=== PATIENT | male | born 1945 | race Caucasian/White ===

== ENCOUNTER 2023-08-16 12:16 | Inpatient (IN) ==
--- NOTE | 2023-08-16 12:54 | Emergency Department Note ---
Impression & Plan Cellulitis, Rigors, Thrombocytopenia, Hypotension ED Provider Note NAME: SHAILESH WARD AGE: 77 SEX: M : 1945 ARRIVES VIA: Ambulance INFORMANT: Patient ED PROVIDER(S): Howie Nava DO CHIEF COMPLAINT: shaking HPI: Patient is a 77-year-old male with a past medical history of depression, suicidal ideations, biliary colic and renal failure who presents to the ER for shaking which started yesterday. Patient notes he noticed a rash on his chest 3 days ago. Denies any headache or change in vision. No chest pain or shortness of breath. No nausea, vomiting, or diarrhea. No dysuria, urgency, or frequency. He notes he cannot stop shaking at this time. No other exacerbating or remitting factors. No fevers ADDITIONAL HISTORY OBTAINED: Per HPI Chronic Medical/Social Conditions Affecting Care: Per HPI PAST MEDICAL HISTORY:See Below PAST SURGICAL HISTORY:See Below FAMILY HISTORY:See Below SOCIAL HISTORY:See Below HOME MEDICATIONS:See Below ALLERGIES:See Below VITALS:See Below PHYSICAL EXAMINATION: GENERAL: Sitting up in bed, alert, shaky EYE EXAM: normal conjunctiva. PERRL and EOM's intact. OROPHARYNX: no exudate, no erythema, lips, buccal mucosa, and tongue normal and mucous membranes are moist NECK: supple, no nuchal rigidity, no adenopathy, non-tender LUNGS: Clear to auscultation. Normal chest wall mechanics HEART: no murmurs, S1 normal and S2 normal ABDOMEN: abdomen soft, non-tender, normo-active bowel sounds, no masses, no rebound or guarding. BACK: Back is symmetrical on inspection and there is no deformity, no midline tenderness, no CVA tenderness. SKIN: Erythematous warm blanching rash over the mid chest that is circular fashion UPPER EXTREMITIES: upper extremities are grossly normal. LOWER EXTREMITIES: No pitting edema. NEURO EXAM: Normal sensorium, cranial nerves II-XII grossly intact, normal speech, no gross weakness of arms, no gross weakness of legs. MEDICAL DECISION MAKING: Patient is a 77-year-old male who is brought in for persistent chills and shaking. IV was established blood work was obtained. Proper station is found to be hypotensive. Labs show no significant leukocytosis or anemia. There is thrombocytopenia at 91. BMP with creatinine 1.5. LFTs bilirubin was unremarkable. Troponin negative. Pro-Shan negative. UA was clean. Lyme was negative. Anaplasmosis smear was negative without inclusion bodies. With the rash I did favor Lyme. Patient was covered with Rocephin. With this being negative I also gave doxycycline to cover for anaplasmosis. Patient was febrile here. Updated at bedside. Given IV fluids. Rigors did improve. He was discussed with the hospitalist for further evaluation management treatment. Consults/Care Managements Discussions: Per [facility] Triage Nursing notes reviewed. Limited review of prior medical records performed Vital Signs: reviewed and remarkable for hypotension Differential diagnosis: Differential diagnosis includes etiologies such as sepsis, UTI, pneumonia, metabolic, electrolyte abnormalities, cardiac sources, intracerebral event, toxicologic, neurological, as well as others were entertained. ER treatment provided: See below Diagnostics interpreted by me include EKG and cardiac monitoring as listed below: -Cardiac Monitoring: An order was placed for continuous cardiac monitoring. The monitor shows a rate of 60 with sinus rhythm. -ECG: Sinus rhythm rate 67 Left axis No PVCs QTc 397 T wave inversion in the high lateral leads -Laboratory studies:Interpreted by me as stated above in MDM and shown below. Imaging studies: Xrays: As interpreted by me: Portable AP upright 1 view of the chest shows no focal CTs show: none Procedures:none Critical Care: None Past Med/Surg History Problem List (Updated 08/16/23 @ 16:35 by Howie Nava DO) Hypotension (Acute) Thrombocytopenia (Acute) Rigors (Acute) Cellulitis (Acute) Depression (Chronic) Sensorineural hearing loss (SNHL) of both ears Bilateral tinnitus Dementia (Chronic) Suicidal ideation (Acute) Mood disorder (Acute) Epididymitis (Acute) Testicular pain, right (Acute) Crushing injury of second toe, left (Acute) Suicidal ideation (Acute) ARF (acute renal failure) (Acute) ARF (acute renal failure) (Acute) Abdominal pain (Acute) Biliary colic (Acute 07/13/13) Dehydration (Acute) Medical History Depression Surgical History Surgical history unknown Family History Other Family history unknown Social History Smoking Status: Former smoker Preferred Language: Bulgarian current occupational status: retired Feels Safe at Home: Yes Allergies Allergies Allergy/AdvReac Type Severity Reaction Status Date / Time ziprasidone AdvReac Intermediate RASH Verified 08/20/20 15:02 Home Meds Home Medications Medication Instructions Recorded Confirmed ascorbic acid (vitamin C) 500 mg 1,000 mg PO DAILY 06/27/20 08/16/23 capsule aspirin 81 mg tablet,delayed 81 mg PO DAILY 06/27/20 08/16/23 release ferrous sulfate 325 mg (65 mg 650 mg PO DAILY 06/27/20 08/16/23 iron) tablet multivitamin 1 tab PO DAILY 06/27/20 08/16/23 gabapentin 300 mg capsule 600 mg PO BID 08/20/20 08/16/23 trazodone 50 mg tablet 100 mg PO HS 08/20/20 08/16/23 CoQ-10 1 cap PO UD 08/16/23 08/16/23 Results & Data (ED) Vital Signs Vital Signs - 24 hr 08/16/23 12:34 08/16/23 12:54 08/16/23 12:54 Temperature 37.1 C 38 C H Temperature Source Oral Oral Pulse Rate 80 70 Pulse Rate [Finger] Pulse Rhythm [Finger] Pulse Strength [Finger] Respiratory Rate 16 Respiratory Effort / Characteristics Respiratory Depth Normal Respiratory Pattern Blood Pressure 56/30 L Blood Pressure [Right Arm] Blood Pressure Mean 38 Blood Pressure Mean [Right Arm] Blood Pressure Position [Right Arm] Pulse Oximetry 96 Oxygen Delivery Method Room Air Sepsis Recent Fever Within 48 Hours No Sepsis New/Unexplained Change in Mental Status N/A Sepsis Action Taken by Nursing No Action Required 08/16/23 12:55 08/16/23 14:38 Temperature Temperature Source Pulse Rate Pulse Rate [Finger] 60 Pulse Rhythm [Finger] Regular Pulse Strength [Finger] Normal Respiratory Rate 18 Respiratory Effort / Characteristics Non-Labored Spontaneous Respiratory Depth Normal Respiratory Pattern Regular Blood Pressure Blood Pressure [Right Arm] 128/105 H 133/63 Blood Pressure Mean Blood Pressure Mean [Right Arm] 112 86 Blood Pressure Position [Right Arm] Lying Pulse Oximetry 94 Oxygen Delivery Method Room Air Sepsis Recent Fever Within 48 Hours Sepsis New/Unexplained Change in Mental Status Sepsis Action Taken by Nursing Laboratory Data 08/16/23 12:53 08/16/23 12:53 Lab Results 08/16/23 08/16/23 08/16/23 Range/Units 12:53 12:53 13:45 WBC 5.32 (4.8-10.8) K/ul RBC 4.15 L (4.70-6.10) M/uL Hgb 13.3 L (14.0-18.0) g/dl Hct 39.4 L (42.0-52.0) % MCV 94.9 (80.0-100.0) fL MCH 32.0 (25.0-34.0) pg MCHC 33.8 (32.0-36.0) g/dL RDW Std Deviation 43.4 (36.4-46.3) fL RDW Coeff of [place] 12.4 (11.5-14.5) % Plt Count 91 L (130-400) K/uL MPV 10.5 (9.4-12.4) fL Immature Gran % (Auto) 0.4 % Neut % (Auto) 76.4 % Lymph % (Auto) 10.7 % [place] % (Auto) 11.7 % Eos % (Auto) 0.0 % Baso % (Auto) 0.8 % Neut # (Auto) 4.07 (1.40-6.50) K/uL Lymph # (Auto) 0.57 L (1.20-3.40) K/uL [place] # (Auto) 0.62 H (0.11-0.59) K/uL Eos # (Auto) 0.00 (0.00-0.50) K/uL Baso # (Auto) 0.04 (0.00-0.20) K/uL Immature Gran # (Auto) 0.02 (0.01-0.20) K/uL Platelet Estimate Decreased L (Normal) RBC Morphology Unremarkable Sodium 137 (136-145) mmol/L Potassium 4.2 (3.5-5.1) mmol/L Chloride 101 (98-107) mmol/L Carbon Dioxide 30 (21-32) mmol/L Anion Gap 6 (3-11) BUN 21 (6-23) mg/dl Creatinine 1.57 H (0.6-1.4) mg/dl Est Cr Clr Drug Dosing 41.6 ml/min Est GFR ( Amer) 48.6 ml/min Est GFR (Non-Af Amer) 41.9 ml/min BUN/Creatinine Ratio 13.4 (10-20) Glucose 103 H (70-99(Fasting)) mg/dl Lactate 1.7 (0.4-2.0) mmol/L Calcium 8.9 (8.6-10.3) mg/dl Magnesium 2.1 (1.7-2.4) mg/dl Total Bilirubin 0.8 (0.2-1.0) mg/dl Direct Bilirubin 0.2 (0-0.2) mg/dl AST 20 (13-39) U/L ALT 9 (7-52) U/L Alkaline Phosphatase 89 (34-104) U/L Total Creatine Kinase 93 (30-223) U/L Troponin I High Sens 12.4 (0-20) pg/ml Total Protein 7.3 (6.0-8.3) gm/dl Albumin 4.2 (3.4-5.0) gm/dl Procalcitonin 0.17 (0-0.5) ng/ml Urine Color Yellow Urine Appearance Clear (Clear) Urine pH 7.0 (4.5-7.5) Ur Specific [place] 1.018 (1.000-1.030) Urine Protein Trace H (Negative) Urine Glucose (UA) Negative (Negative) Urine Ketones Trace H (Negative) Urine Blood Negative (Negative) Urine Nitrite Negative (Negative) Urine Bilirubin Negative (Negative) Urine Urobilinogen Negative (Negative) Ur Leukocyte Esterase Negative (Negative) Urine WBC (Auto) 0-5 (0-5) /hpf Urine RBC (Auto) 3-5 H (0-2) /hpf U Hyaline Cast (Auto) 0-2 (0-2) /lpf U Epithel Cells (Auto) 0-2 (0-2) /hpf Urine Bacteria (Auto) None Seen (None Seen) Anaplasma Smear See Comment Babesia Smear See Comment Lyme Disease Screen Negative Cancelled (Negative) Administered Medications Discontinued Medications Acetaminophen (Acetaminophen 325 Mg Tab) 650 mg PO NOW STA Stop: 08/16/23 12:56 Last Admin: 08/16/23 13:04 Dose: 650 mg Documented By: DIANA Ceftriaxone Sodium (Rocephin) 2,000 mg in 50 mls @ 100 mls/hr IV NOW STA Stop: 08/16/23 13:20 Last Infusion: 08/16/23 13:54 Dose: Infused Documented By: Admin: 08/16/23 13:04 Dose: 100 mls/hr Documented By: DIANA Sodium Chloride (Nss) 1,000 mls @ 999 mls/hr IV .Q1H1M SRINATH Stop: 08/16/23 15:00 Last Infusion: 08/16/23 15:58 Dose: Infused Documented By: Admin: 08/16/23 13:57 Dose: 999 mls/hr Documented By: Infusion: 08/16/23 13:57 Dose: Infused Documented By: Admin: 08/16/23 13:04 Dose: 999 mls/hr Documented By: DIANA Doxycycline Hyclate 100 mg/ (Dextrose) 100 mls @ 50 mls/hr IV NOW STA Stop: 08/16/23 15:13 Last Infusion: 08/16/23 15:58 Dose: Infused Documented By: Admin: 08/16/23 13:57 Dose: 50 mls/hr Documented By: NAVJOT Imaging Data Radiologist's Impression: Chest X-Ray 08/16/23 12:43 XR chest 1V portable HISTORY: 77 years-old Male Sepsis acute sepsis COMPARISON: 07/13/2013 TECHNIQUE: AP view of the chest FINDINGS: Cardiomediastinal and hilar silhouettes are within normal limits. No pneumothorax, pleural effusion, airspace consolidation or pulmonary edema. Degenerative changes of the shoulders and spine. IMPRESSION: No acute process. ACT 112: Negative or not required by law. The above report was generated using voice recognition software. It may contain grammatical, syntax or spelling errors. Electronically signed by: Ishaan Kumar M.D. 08/16/2023 1:19 PM Discharge Plan Visit Data Chief Complaint: Illness Stated Complaint: Uncontrollable Shaking ED Provider: Howie Nava Discharge Problem: Cellulitis, Rigors, Thrombocytopenia, Hypotension Forms Stand Alone Forms: My [employer] Prescriptions Prescriptions: No Action ascorbic acid (vitamin C) 500 mg capsule 1,000 mg PO DAILY aspirin 81 mg tablet,delayed release (DR/EC) 81 mg PO DAILY ferrous sulfate 325 mg (65 mg iron) tablet 650 mg PO DAILY multivitamin Tablet 1 tab PO DAILY trazodone 50 mg tablet 100 mg PO HS gabapentin 300 mg capsule 600 mg PO BID Rx Instructions: 2 am and 2 pm CoQ-10 1 cap PO UD Rx Instructions: otc, as directed Referrals Referrals: PCP,NO [Physician] - Discharge Problem: Cellulitis Qualifiers: Site of cellulitis: unspecified site Qualified Code(s): L03.90 - Cellulitis, unspecified Hypotension Qualifiers: Hypotension type: unspecified hypotension type Qualified Code(s): I95.9 - Hypotension, unspecified
[2023-08-16] MEDS: ACETAMINOPHEN 325 MG TAB PO STA (13:04)
[2023-08-16] MEDS: cefTRIAXone SODIUM 2,000 MG/50 ML BAG IV STA (13:04)
[2023-08-16] MEDS: SODIUM CHLORIDE 0.9% 1,000 ML IV SCH (13:04)
--- NOTE | 2023-08-16 13:20 | XRay Report ---
XR chest 1V portable HISTORY: 77 years-old Male Sepsis acute sepsis COMPARISON: 07/13/2013 TECHNIQUE: AP view of the chest FINDINGS: Cardiomediastinal and hilar silhouettes are within normal limits. No pneumothorax, pleural effusion, airspace consolidation or pulmonary edema. Degenerative changes of the shoulders and spine. IMPRESSION: No acute process. ACT 112: Negative or not required by law. The above report was generated using voice recognition software. It may contain grammatical, syntax o r spelling errors. Electronically signed by: Ishaan Kumar M.D. 08/16/2023 1:19 PM
[2023-08-16 13:26] LABS: Albumin Level 4.2 gm/dl (3.4-5.0); BUN Creatinine Ratio 13.4 (10-20); Bilirubin Direct 0.2 mg/dl (0-0.2); Bilirubin,Total 0.8 mg/dl (0.2-1.0); Calcium 8.9 mg/dl (8.6-10.3); Creatinine Clr Calc Pharmacy 41.6 ml/min; Est GFR (African American) 48.6 ml/min; Est GFR (Non-African American) 41.9 ml/min; Magnesium 2.1 mg/dl (1.7-2.4); Potassium 4.2 mmol/L (3.5-5.1); Total Protein 7.3 gm/dl (6.0-8.3)
[2023-08-16 13:32] LABS: Troponin I High Sensitivity 12.4 pg/ml (0-20)
[2023-08-16 13:33] LABS: Procalcitonin 0.17 ng/ml (0-0.5)
[2023-08-16 13:35] LABS: Basophils # (auto) 0.04 K/uL (0.00-0.20); Basophils % (auto) 0.8 %; Hematocrit (blood only) 39.4 % (42.0-52.0); Hemoglobin 13.3 g/dl (14.0-18.0); Immature Granulocytes # (auto) 0.02 K/uL (0.01-0.20); Immature Granulocytes % (auto) 0.4 %; Lymphocytes # (auto) 0.57 K/uL (1.20-3.40); Lymphocytes % (auto) 10.7 %; Mean Corpuscular Hgb Conc 33.8 g/dL (32.0-36.0); Mean Corpuscular Volume 94.9 fL (80.0-100.0); Mean Platelet Volume 10.5 fL (9.4-12.4); Monocytes # (auto) 0.62 K/uL (0.11-0.59); Monocytes % (auto) 11.7 %; Neutrophils # (auto) 4.07 K/uL (1.40-6.50); Neutrophils % (auto) 76.4 %; Platelet Count 91 K/uL (130-400); Platelet Estimate Decreased (Normal); RBC Morphology Unremarkable; RDW Coefficient of Variation 12.4 % (11.5-14.5); RDW Standard Deviation 43.4 fL (36.4-46.3); Red Blood Count 4.15 M/uL (4.70-6.10); White Blood Count 5.32 K/ul (4.8-10.8)
[2023-08-16] MEDS: DOXYCYCLINE HYCLATE 100 MG in D5W MINI-B (NOW) IV STA (13:57)
[2023-08-16 13:58] LABS: Lyme Screen Rflx Confirmation Negative (Negative)
[2023-08-16 14:05] LABS: Appearance Urine Clear (Clear); Bacteria Urine Automated None Seen (None Seen); Bilirubin Urine Negative (Negative); Blood Urine Negative (Negative); Cast Urine Automated 0-2 /lpf (0-2); Color Urine Yellow; Epithelial Cell Urine Auto 0-2 /hpf (0-2); Glucose Urine UA Negative (Negative); Ketones Urine Trace (Negative); Leukocyte Esterase Urine Negative (Negative); Nitrite Urine Negative (Negative); Protein Urine Trace (Negative); Specific Gravity Urine 1.018 (1.000-1.030); Urobilinogen Urine Negative (Negative); WBC Urine Automated 0-5 /hpf (0-5)
--- NOTE | 2023-08-16 14:40 | History & Physical Report ---
Date of Service August 16, 2023 Assessment & Plan (1) Rigors: (2) Cellulitis: (3) Thrombocytopenia: Plan Mr. Leon is a 77 year old gentleman with a history of HLD, neuropathy, CKDIII, prior psychiatric history on neurleptics c/b dyskinesia who is admitted for further evaluation of rigors and thrombocytopenia. Patient with questionable area of cellulitis, on left chest with central erythema and ~8in circumfrential spread of fading redness--c/w bite/sting. Patient with notable improvement with abx. #hypoglycemia Ketones in urine, daughter reports poor po intake no hx of diabetes, insulin and c-peptide level ordered tsh ordered ct abdp A1C in am Hypogylcemia protocol #Fevers #Rigors #Cellulitis -concerning area on chest c/w insect bite/sting worsening with ? of fever broaden empiric coverage with vanc/cefepime follow infectious work up tick bourne illness panel pending CT AP MRSA #thrombocytopenia -? if related to ongoing cellulities, last plt count in 03/2023 199 r/o tick bourne disease Repeat CBC with diff in am, coags LFTs appear WNL #Insomnia continue trazodone #Chronic Iron deficiency anemia -last Ferritin 65 03/2023 hgb 13.7, consistent with today's lab continue iron supplementation #dyskinesia history of multiple neuroleptics, diffuse dyskinesia noted, at baseline per patient and daughter documented visit with neurology 2014 Neuro visit states " it very hard to state this man has any type of dementia. 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 Suarez, "Very slowly progressive CKD 3B without microalbuminuria". stable on bmp DVT ppx heparin sq Med surg Admission and Anticipated Discharge Date Admission Date: Time spent evaluating patient, direct bedside care, chart review, placing orders, interpretation of diagnostic studies, discussion with consultants, patient, and family members, as well as other required patient management activities is 60 minutes. History of Present Illness Chief Complaint: Rigors, Rash Primary Care Provider: NO PCP Mr. Leon is a 77 year old woman/gentleman with past medical history remarkable for presented to [facility] ED due to rigors and chills. Patient states a couple weeks ago he noted a small "spot" on his chest that was mildly itchy, but didn't pay much attention to the area, it seems the surrounding redness progressed. He notes that now over the last 48 hours he has experienced severe chills making it harder for him to function. He already experiences "unaddressed movements" for years, consistent with diagnosis of dyskinesia in 2013 after previous neuroleptic use. He denies subjective fevers, cough, urinary concerns, bowel function changes, nausea, vomiting. He reports feeling subjectively improved since abx. Denies any animal exposure, camping/hiking/lawn work, however reports living in the [facility]" and "anything is possible" Blood cultures obtained. UA protein, rbc + no blood, ketones. BMP with Cr. 1,5 c/w CKD. CK 93, platelets 91 In the ED, vitals were notable for BP of 120s-150s, HR of 60-80s, and O2 sat of mid 90s on room air, TMAX 38 Imaging revealed clear CXR, w/o consolidations or infectious process EKG with artifact, but no signs of block ED interventions: ctx/doxy Patient to be admitted to med/surg for further evaluation and management of fever and rigors, concern for cellulitis, ?tickborne illness Allergies Allergy/AdvReac Type Severity Reaction Status Date / Time ziprasidone AdvReac Intermediate RASH Verified 08/20/20 15:02 Home Medications Medication Instructions Recorded Confirmed Type ascorbic acid (vitamin C) 500 mg 1,000 mg PO DAILY 06/27/20 08/16/23 History capsule aspirin 81 mg tablet,delayed 81 mg PO DAILY 06/27/20 08/16/23 History release ferrous sulfate 325 mg (65 mg 650 mg PO DAILY 06/27/20 08/16/23 History iron) tablet multivitamin 1 tab PO DAILY 06/27/20 08/16/23 History gabapentin 300 mg capsule 600 mg PO BID 08/20/20 08/16/23 History trazodone 50 mg tablet 100 mg PO HS 08/20/20 08/16/23 History CoQ-10 1 cap PO UD 08/16/23 08/16/23 History Past Med/Surg History Problem List (Updated 08/16/23 @ 16:35 by Howie Nava, DO) Hypotension (Acute) Thrombocytopenia (Acute) Rigors (Acute) Cellulitis (Acute) Depression (Chronic) Sensorineural hearing loss (SNHL) of both ears Bilateral tinnitus Dementia (Chronic) Suicidal ideation (Acute) Mood disorder (Acute) Epididymitis (Acute) Testicular pain, right (Acute) Crushing injury of second toe, left (Acute) Suicidal ideation (Acute) ARF (acute renal failure) (Acute) ARF (acute renal failure) (Acute) Abdominal pain (Acute) Biliary colic (Acute 07/13/13) Dehydration (Acute) Medical History Depression Surgical History Surgical history unknown Family History Other Family history unknown Social History Smoking Status: Former smoker Preferred Language: Israeli current occupational status: retired Feels Safe at Home: Yes Review of Systems Review of Systems: Constitutional: (-) fever/chills, (-) recent loss of weight, (-) appetite changes, (-) night sweats. Head: (-) headache, (-) dizziness. Eye: (-) blurring of vision, (-) double vision, (-) redness. Ear: (-) hearing loss, (-) discharge, (-) vertigo Nose: (-) discharge, (-) bleeding, (-) congestion, (-) post nasal drip. Throat: (-) sore throat, (-) hoarseness of voice, (-) odynophagia. Cardiovascular: (-) chest pain, (-) palpitations, (-) syncope, (-) orthopnea, (- ) PND, (-) leg swelling. Respiratory: (-) shortness of breath, (-) cough, (-) wheezing, (-) hemoptysis. Neuro: (-) weakness in extremities, (-) numbness, (-) tingling, (-) tremor. Gastrointestinal: (-) belly pain, (-) belly distension, (-) nausea, (-) vomiting, (-) diarrhea, (-) constipation, (-) na, (-) hematemesis, (-) hematochezia, (-) bowel incontinence Genitourinary: (-) hematuria, (-) dysuria, (-) polyuria, (-) hesitancy, (-) frequency, (-) urinary incontinence. Musculoskeletal: (-) myalgia, (-) arthralgia. Skin: (-) rashes. Endocrine: (-) heat/cold intolerance. Psychiatry: (-) depression, (-) hallucination. Physical Exam Physical Exam: GENERAL APPEARANCE: AxOx4, no distress, diffuse writhing movements, predominately face/upper extremities with HEENT: NC, AT. MMM. EOMI, clear conjunctiva, oropharynx clear. NECK: Supple without lymphadenopathy. No stiffness or restricted ROM. HEART: Normal rate and regular rhythm, normal S1/S1, no m/r/g LUNGS: CTAB, moving air well. No crackles or wheezes are heard. ABDOMEN: Soft, nontender, nondistended with good bowel sounds heard. BACK: No CVAT, no obvious deformity. EXTREMITIES: Without cyanosis, clubbing or edema. NEUROLOGICAL: Grossly nonfocal. Alert and oriented, moving all 4 extremities. CN not formally tested but appear grossly intact. Skin: large area of erythema along left anterior chest will with central punctate area--no purulence noted, no discharge Results & Data Results & Data Vital Signs (Past 12 Hours) Vital Signs Temp Pulse Resp BP BP Pulse Ox O2 Del Method 08/16/23 12:55 128/105 H 08/16/23 12:54 70 08/16/23 12:54 38 C H 08/16/23 12:34 37.1 C 80 16 56/30 L 96 Room Air Laboratory Results Short CBC 08/16/23 Range/Units 12:53 WBC 5.32 (4.8-10.8) K/ul Hgb 13.3 L (14.0-18.0) g/dl Hct 39.4 L (42.0-52.0) % Plt Count 91 L (130-400) K/uL BMP 08/16/23 12:53 Sodium 137 Potassium 4.2 Chloride 101 Carbon Dioxide 30 BUN 21 Creatinine 1.57 H Glucose 103 H Calcium 8.9 Cardiac Enzymes 08/16/23 Range/Units 12:53 Total Creatine Kinase 93 (30-223) U/L Liver Function 08/16/23 Range/Units 12:53 Total Bilirubin 0.8 (0.2-1.0) mg/dl Direct Bilirubin 0.2 (0-0.2) mg/dl AST 20 (13-39) U/L ALT 9 (7-52) U/L Alkaline Phosphatase 89 (34-104) U/L Albumin 4.2 (3.4-5.0) gm/dl Urine 08/16/23 Range/Units 13:45 Urine Color Yellow Urine Appearance Clear (Clear) Urine pH 7.0 (4.5-7.5) Ur Specific [place] 1.018 (1.000-1.030) Urine Protein Trace H (Negative) Urine Glucose (UA) Negative (Negative) Diagnostic Findings Chest X-Ray 08/16/23 12:43 XR chest 1V portable HISTORY: 77 years-old Male Sepsis acute sepsis COMPARISON: 07/13/2013 TECHNIQUE: AP view of the chest FINDINGS: Cardiomediastinal and hilar silhouettes are within normal limits. No pneumothorax, pleural effusion, airspace consolidation or pulmonary edema. Degenerative changes of the shoulders and spine. IMPRESSION: No acute process. ACT 112: Negative or not required by law. The above report was generated using voice recognition software. It may contain grammatical, syntax or spelling errors. Electronically signed by: Ishaan Kumar M.D. 08/16/2023 1:19 PM Personal reviewed image, no consolidations or infectious process Medications Administered Home Medications Medication Instructions Recorded Confirmed Last Taken ascorbic acid (vitamin C) 500 mg 1,000 mg PO DAILY 06/27/20 08/16/23 08/20/20 capsule aspirin 81 mg tablet,delayed 81 mg PO DAILY 06/27/20 08/16/23 08/20/20 release ferrous sulfate 325 mg (65 mg 650 mg PO DAILY 06/27/20 08/16/23 08/20/20 iron) tablet multivitamin 1 tab PO DAILY 06/27/20 08/16/23 08/20/20 gabapentin 300 mg capsule 600 mg PO BID 08/20/20 08/16/23 08/20/20 08:00 trazodone 50 mg tablet 100 mg PO HS 08/20/20 08/16/2321 CoQ-10 1 cap PO UD 08/16/23 08/16/23 Unknown (2) Cellulitis Site of cellulitis: unspecified site Qualified Code(s): L03.90 - Cellulitis, unspecified
[2023-08-16] MEDS ORDERED: NON-FORMULARY MEDICATION (Coq-10 1 CAP) PO SCH (16:51)
[2023-08-16] MEDS: CARBOHYDRATES FOR HYPOGLYCEMIA PO PRN (17:11)
[2023-08-16] MEDS ORDERED: VANCOMYCIN CONSULT ACTIVE PRN (17:14)
[2023-08-16] MEDS ORDERED: GLUCAGON FOR INJ 1 MG VIAL SQ PRN (17:30)
[2023-08-16] MEDS ORDERED: GLUCOSE 40% GEL 15 GM TUBE PO PRN (17:30)
[2023-08-16] MEDS ORDERED: GLUCOSE 10 TAB/TUBE PO PRN (17:30)
[2023-08-16] MEDS ORDERED: DEXTROSE 50% 50 ML SYRINGE IV PRN (17:30)
[2023-08-16] MEDS: LORazepam 0.5 MG in SYRINGE 0.25 ML IV STA (17:32)
--- NOTE | 2023-08-16 17:33 | Pharmacy Report ---
Pharmacy PK ABX Note - Date of Service August 16, 2023 - Assessment and Plan Assessment * 77 year old M receiving cefepime and vancomycin for treatment of possible cellulitis * PMH: CKD III (no baseline SCr available in [facility]) * Pertinent microbiologic data includes: blood cultures and nasal swab pending Plan Vancomycin * Loading dose: 1500 mg IV x 1 * Assuming stable SCr, will plan to target AUC/CLINTON of 400-600 mg/L.hr * Will dose via level for now until trend in SCr is more apparent * Random level ordered for tomorrow AM Pharmacy will continue to follow and will adjust dose/frequency as necessary. Thank you. Pharmacy has transitioned to AUC monitoring for vancomycin. AUC/CLINTON is the preferred PK/PD target and is associated with decreased risk of nephrotoxicity compared to traditional trough targets.
--- NOTE | 2023-08-16 17:43 | Communication Note ---
Date of Service: August 16, 2023 Called to bedside given return of rigors. Glucose in 40s despite no hx of diabetes Question if rigors are related to underlying infectious source and given strict dietary preference low glycogen stores v rigors sequela of hypoglycemia -Broaden abx coverage vanc cefepime -TSH, insulin, c-peptide, cortisol -Hypoglycemia protocol
[2023-08-16] MEDS: VANCOMYCIN HCL 1,500 MG in SODIUM CHLORIDE 0.9% 500 ML IV ONE (17:46)
[2023-08-16] MEDS: CEFEPIME 2,000 MG in SYRINGE 0 ML IV SCH (17:46)
[2023-08-16 18:49] LABS: Thyroid Stimulating Hormone 0.979 uIu/ml (0.300-4.500)
--- NOTE | 2023-08-16 19:19 | Electrocardiogram Report ---
Test Reason : Blood Pressure : / mmHG Vent. Rate : 067 BPM Atrial Rate : 067 BPM P-R Int : 176 ms QRS Dur : 102 ms QT Int : 376 ms P-R-T Axes : 086 -43 081 degrees QTc Int : 397 ms Normal sinus rhythm Left axis deviation Left ventricular hypertrophy with repolarization abnormality ( R in aVL , [place] product ) Cannot rule out Anteroseptal infarct , age undetermined Abnormal ECG When compared with ECG of 13-JUL-2013 13:40, QRS duration has increased Minimal criteria for Anteroseptal infarct are now Present Confirmed by Sukh Bearden ([id number]) on 08/16/2023 7:19:14 PM Referred By: Confirmed By:Sukh Bearden
[2023-08-16 19:39] LABS: Adenovirus PCR Not Detected (NotDetected); Bordetella parapertussis PCR Not Detected (NotDetected); Bordetella pertussis PCR Not Detected (NotDetected); Chlamydia pneumoniae PCR Not Detected (NotDetected); Coronavirus 229E PCR Not Detected (NotDetected); Coronavirus CoV-2 (COVID19)PCR Not Detected (NotDetected); Coronavirus HKU1 PCR Not Detected (NotDetected); Coronavirus NL63 PCR Not Detected (NotDetected); Coronavirus OC43PCR Not Detected (NotDetected); Human Metapneumovirus PCR Not Detected (NotDetected); Influenza A PCR Not Detected (NotDetected); Influenza B PCR Not Detected (NotDetected); Mycoplasma pneumoniae PCR Not Detected (NotDetected); Parainfluenza Virus 1 PCR Not Detected (NotDetected); Parainfluenza Virus 2 PCR Not Detected (NotDetected); Parainfluenza Virus 3 PCR Not Detected (NotDetected); Parainfluenza Virus 4 PCR Not Detected (NotDetected); Respiratory Syncytial VirusPCR Not Detected (NotDetected); Rhinovirus/Enterovirus PCR Not Detected (NotDetected)
[2023-08-16] MEDS: DOXYCYCLINE HYCLATE 100 MG in DEXTROSE 5% MINI-B 100 ML IV SCH (19:40)
[2023-08-16] MEDS: ACETAMINOPHEN 325 MG TAB PO PRN (20:03)
[2023-08-16] MEDS: GABAPENTIN 300 MG CAP PO SCH (20:04)
[2023-08-16] MEDS: traZODone HCL 100 MG TAB PO SCH (20:04)
[2023-08-16] MEDS ORDERED: ACETAMINOPHEN 1,000 MG/100 ML VIAL IV PRN (20:20)
--- NOTE | 2023-08-16 21:28 | CT Scan Report ---
CT abd pelvis wo con CLINICAL HISTORY: rigors, hyoglycemia, unclear source fever TECHNIQUE: Helical axial images of the abdomen and pelvis were obtained. Automated dose lowering tech niques and/or adjustment according to patient size were utilized for this exam. This exam was perfor med without intravenous contrast. CT DOSE: 925.86 mGy.cm COMPARISON: Comparison is made to CT abdomen pelvis 06/07/2013 FINDINGS: Exam is limited by patient positioning. Lower chest: Bibasilar atelectasis versus scarring is seen. Severe atherosclerotic disease is seen i n the coronary arteries. Liver: Suggestion of hepatic cysts. Gallbladder and biliary tree: No calcified gallstones. Normal caliber wall. No intra- or extrahepatic biliary ductal dilation. Pancreas: Unremarkable, no focal lesions. Spleen: Splenule is incidentally noted. Adrenals: Unremarkable. Kidneys and ureters: Left renal cysts are seen. Perinephric stranding is seen. Bladder: Unremarkable. Reproductive organs: Unremarkable. Bowel: The appendix is normal. Lymph nodes Retroperitoneal: Unremarkable. Pelvic: Unremarkable. Mesenteric: Unremarkable. Peritoneum: Calcification in the left pelvis may represent prior epiploic appendagitis. Additional ca lcification is seen in the mid abdomen which is nonspecific but likely benign. Vessels: Unremarkable. Abdominal wall: Unremarkable. Bones: Degenerative changes in the visualized spine. IMPRESSION: No acute abnormalities to represent a source of fever. Incidental findings as above. ACT 112: Negative or not required by law. Electronically signed by: Berhane Bustos M.D. 08/16/2023 9:25 PM
[2023-08-16] MEDS: HEPARIN SOD 5,000 UNIT/0.5 ML VIAL SQ SCH (21:38)
[2023-08-17] MEDS: ASCORBIC ACID 500 MG TAB PO SCH (08:12)
[2023-08-17] MEDS: FERROUS SULFATE 325 MG TAB PO SCH (08:12)
[2023-08-17] MEDS: ASPIRIN 81 MG ECTAB PO SCH (08:13)
[2023-08-17] MEDS: MULTIVITAMIN TAB PO SCH (08:13)
[2023-08-17 08:26] LABS: Basophils # (auto) 0.02 K/uL (0.00-0.20); Basophils % (auto) 0.5 %; Hematocrit (blood only) 34.4 % (42.0-52.0); Hemoglobin 11.9 g/dl (14.0-18.0); Immature Granulocytes # (auto) 0.02 K/uL (0.01-0.20); Immature Granulocytes % (auto) 0.5 %; Lymphocytes # (auto) 0.52 K/uL (1.20-3.40); Lymphocytes % (auto) 12.9 %; Mean Corpuscular Hemoglobin 32.2 pg (25.0-34.0); Mean Corpuscular Hgb Conc 34.6 g/dL (32.0-36.0); Mean Corpuscular Volume 93.2 fL (80.0-100.0); Mean Platelet Volume 10.6 fL (9.4-12.4); Monocytes % (auto) 9.9 %; Neutrophils # (auto) 3.07 K/uL (1.40-6.50); Neutrophils % (auto) 76.2 %; Platelet Count 75 K/uL (130-400); RDW Coefficient of Variation 12.4 % (11.5-14.5); RDW Standard Deviation 42.5 fL (36.4-46.3); Red Blood Count 3.69 M/uL (4.70-6.10); White Blood Count 4.03 K/ul (4.8-10.8)
[2023-08-17 08:39] LABS: Albumin Globulin Ratio 1.3 (0.9-2); Albumin Level 3.3 gm/dl (3.4-5.0); BUN Creatinine Ratio 14.4 (10-20); Bilirubin,Total 0.7 mg/dl (0.2-1.0); Calcium 8.1 mg/dl (8.6-10.3); Est GFR (African American) 56.3 ml/min; Est GFR (Non-African American) 48.5 ml/min; Globulin 2.6 gm/dl (2.5-4.0); Potassium 3.7 mmol/L (3.5-5.1); Total Protein 5.9 gm/dl (6.0-8.3)
[2023-08-17 08:48] LABS: Cortisol AM 15.82 mcg/dl (6.2-22.6)
[2023-08-17 08:54] LABS: Estimated Average Glucose 114 mg/dl; Hemoglobin A1C 5.6 % (4.5-5.6)
--- OUTSIDE RECORDS SUMMARY | 2023-08-17 08:55 | External Medical Summary | Summary of Care ---
Author Name Unknown Organization [facility] Address [address] [facility] [place] [address] Phone [phone] Care Team Providers Care Supervisor Carding Name Role Phone Myla Reich PA-C Primary Care Provider [phone] [phone] Reason for Visit * Reason Comments eRx-Medication Refill Encounter Details Date Type Department Care Team (Late st Contact Info) Description 05/03/2023 Refill [facility] [address] [place] [address] Myla Reich PA-C [address] [place] [address] Sleep disturbance Allergies No known active allergiesdocumented as of this encounter (statuses as of 05/03/2023) Medications Medication Sig Dispensed Refills Start Date End Date Status ASPIRIN 81 MG PO TABS one pill each day 0 12/11/2013 Active Ascorbic Acid (VITAMIN C) 500 MG CAPS Take 1,000 mg by mouth once for 1 dose. 1 Cap 0 12/12/2016 Active Ginkgo Biloba 60 MG CAPS Take 1 Tab by mouth once for 1 dose. 1 Cap 0 12/12/2016 Active Ferrous Sulfate (IRON) 325 (65 Fe) MG TABS Take 1 Tablet by mouth once. 1 Tab 0 12/12/2016 Active Multiple Vitamins-Minerals (CENTRUM SILVER) Tablet Take 1 Tablet by mouth in the morning. 1 Tab 0 12/12/2016 Active coenzyme Q-10 100 MG Capsule Take 1 Capsule by mouth in the morning. 0 Active Gabapentin 300 MG Oral Capsule (Neurontin)Indica tions:Chronic daily headache,Neuropat hy, idiopathic,Pain in both feet take 1 capsule by mouth four times a day as directed 360 Capsule 1 03/22/2023 Active Montelukast Sodium 10 MG Oral Tablet (Singulair)Indica tions:Acute serous otitis media, recurrence not specified, unspecified laterality,Acute maxillary sinusitis, recurrence not specified Take 1 Tablet by mouth in the morning. 30 Tablet 0 03/28/2023 Active predniSONE 10 MG Oral Tablet (Deltasone) Take 5 tabs for 2 days, 4 tabs for 2 days, 3 tabs for 2 days, 2 tabs for 2 days 1 tab for 2 days 30 Tablet 0 04/02/2023 Active Ensure Complete Oral LiquidIndications :Loss of weight,Protein-ca yue malnutrition, unspecified severity (HCC),Teeth missing Take 1 Can by mouth every evening. 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 06/01/2011 History of tobacco use 08/04/2008 Alcohol Dependence, in Remission 09/06/2006 Dyslipidemia, goal LDL below 100 documented as of this encounter (statuses as of 05/03/2023) Resolved Problems Problem Noted Date Diagnosed Date Resolved Date Hives 03/17/2018 02/27/2019 Overview: Acute, history Acute adjustment disorder 03/17/2018 Risk and functional assessment 03/17/2018 08/05/2018 Numbness and tingling in both hands 12/12/2016 02/05/2018 Bilateral wrist pain 12/12/2016 018 Bruising 12/12/2016 02/05/2018 Pain in limb 06/29/2015 08/01/2016 Mood disorder 06/29/2015 08/05/2018 Screening for prostate cancer 01/07/2015 08/01/2016 Encounters for administrative purpose 09/17/2014 08/01/2016 Need for pneumococcal vaccination 09/16/2014 08/01/2016 Right epididymitis 07/13/2014 7 Urticaria, acute 06/22/2014 02/05/2018 Overview: began 06/09/2014 Dermatographism 06/22/2014 08/01/2016 Urticaria 06/10/2014 02/24/2015 Dermatitis 10/27/2013 08/01/2016 Biliary sludge 10/27/2013 02/05/2018 Stomatitis 08/21/2013 08/01/2016 Abdominal pain, generalized 07/21/2013 08/01/2016 Acute renal failure 07/21/2013 08/02/19 17 Biliary colic 07/21/2013 08/01/2016 Dehydration 07/21/2013 08/01/2016 Numbness and tingling of both legs 07/07/2013 08/01/2016 Seborrheic dermatitis of scalp 07/07/2013 02/05/2018 Angular cheilitis 03/31/2013 08/01/2016 Need for shingles vaccine 03/31/2013 Acute pharyngitis 03/09/2013 08/01/2016 Laryngitis 03/09/2013 08/01/2016 Other chest pain 07/10/2012 08/01/2016 Dizziness 07/10/2012 08/01/2016 Vertigo 07/10/2012 02/05/2018 Orthostatic hypotension 07/10/201207/10 Screen for colon cancer 06/06/201207/10 Special screening for malign ant neoplasm of prostate 12/04/2011 08/01/2016 Overweight (BMI 25.0-29.9) 06/01/2011 0 08/01/2016 Overview: bmi= 27.06 06/01/11 Kidney disease, chronic, sta ge III (GFR 30-59 ml/min) 06/01/2011 01/21/2020 Overview: Per CKD protocol Major depressive disorder 06/01/2011 Overview: ICD-10 update of inactive term Panic disorder 06/01/2011 08/05/2018 OVERWEIGHT, BMI = 27.06 12/01/10 12/01/2010 05/29/2014 OVERWEIGHT, BMI= 27.09 05/22/10 05/22/2010 05/29/2014 OVERWEIGHT, BMI= 26.27 11/18/09 11/18/2009 05/29/2014 Kidney disease, chronic, sta ge III (GFR 30-59 ml/min) 09/29/2009 06/01/2011 Overview: Per CKD Protocol, #1 Anemia 02/21/2009 08/01/2016 Overweight (BMI 25.0-29.9) 07/17/2007 0 08/01/2016 Generalized anxiety disorder 01/06/2007 04/08/2008 Overview: Resolved per Duplicate Protocol #2. Routine medical exam 09/06/2006 017 Acute laryngitis 06/03/2006 08/04/2008 Overview: ICD-10 update of inactive term Dermatophytosis of nail 05/29/200501/10 ADVANCE DIRECTIVE INFORMATION 04/27/2005 12/12/2016 Overview: Yes, Patient instructed to provide copy of advance directive for provider to review and to be scanned into Electronic Medical Record Dyslipidemia, goal to be determined 12/29/2002 02/17/2009 Panic disorder 12/29/2002 06/01/2011 GENERALIZED ANXIETY DIS 12/29/200211/10 Major depressive disorder 12/29/2002 Overview: ICD-10 update of inactive term Dementia in conditions class ified elsewhere with behavioral disturbance 06/01/2011 Kidney disease, chronic, sta ge III (GFR 30-59 ml/min) 02/17/2009 documented as of this encounter (statuses as of 05/03/2023) Immunizations Name Administration Dates Next Due Pneumococcal Conjugate Vacc, 13 Valent (Prevnar) 11/11/2014,09/17/2014 Pneumococcal Polysaccharide PPV23 (Pneumovax) 11/06/2015,12/01/2010 Season Influenza, Quad, PF, Adjuvanted, 65+ Yrs, IM (FLUAD) 11/09/2021 Seasonal Influenza Virus Vac cine, Unspecified Formulation 11/10/2019 Seasonal Influenza, Quadriva lent, No Preserve, IM 11/09/2020,10/31/2018,12/06/2017,10/16,11/06/2015,10/25/2014 Seasonal Influenza, Split, I IV3, With Preserve, Inj 11/07/2013,12/08/2012,12/04/2011,12/01,12/19/2009,12/13/2008,01/19/2008 ,01/06/2007,01/09/2006 TDAP (age 10 and older)(Boostrix) 10/04/2022, Varicella Zoster Vaccine (Adult) 02/21/2013 Zoster Vaccine Recombinant (Shingrix) 12/24/2017 ,07/05/2017 documented as of this encounter Social History Tobacco Use Types Packs/Day Years Used Date Smoking Tobacco: Former Cigarettes 2 35 0 07/01/1962 - 07/01/1997 Smokeless Tobacco: Never Comments:Stopped in 1997 abr uptly and hasn't gone back. Alcohol Use Standard Drinks/Week Comments No 0 (1 standard drink = 0.6 oz pure alcohol) Quit 19 years ago, ex-alcholic 12/02/83 PHQ-2 Answer Date Recorded PHQ Adult Total Score 0 10/04/2022 Hunger Vital Sign Answer Date Recorded Within the past 12 months, y ou worried that your food would run out before you got the money to buy more. Never true 10/05/19 23 Within the past 12 months, t he food you bought just didn't last and you didn't have money to get more. Never true 10/04/2022 Sex and Gender Information Value Date Recorded Sex Assigned at Not on file Gender Identity Not on file Sexual Orientation Straight 03/21/2021 8: 04 AM EST Job Start Date Occupation Industry Not on file Not on file Not on file documented as of this encounter Miscellaneous Notes * Telephone Encounter - Loco Madrigal [facility] - 05/03/2023 11:51 AM EST Signed Prescriptions: Disp Refills traZODone HCl 50 MG Oral Tablet (Desyrel) 180 Ta*3 Sig: take 2 tablets by mouth at bedtimeAuthorizing Provider: MYLA REICH User: LOCO MADRIGAL documented in this encounter Plan of Treatment Upcoming Encounters Date Type Department Care Team (Late st Contact Info) Description 07/25/2023 8:20 AM EDT Office Visit [facility] [address] [facility] [place] [address] Myla Reich [facility]-C [address] [facility] [address] Scheduled Procedures Name Priority Associated Diagnoses Date/Ti me COLONOSCOPY FLEXIBLE PROXIMA L DIAGNOSTIC Recall Special screening for malignant neoplasms, colon Health Maintenance Due Date Last Done Comments COVID-19 Vaccine (2022- season) 2022 Albumin/Creatinine Ratio 10/05/2023 023, 03/21/2021, 03/14/2020, Additional history exists CKD PHOS USE SMARTSET 03579 10/05/202309/09, 03/21/2022, 04/05/2021, Additional history exists Depression Screening 10/05/2023 10/04/2022, 07/30/2017, 07/13/2014 (Discussed) GFR 10/09/2023 04/10/2023, 09/09, 03/21/2022, Additional history exists CKD HGB USE SMARTSET 51449 04/10/202404/10, 04/10/2023, 10/04/2022, Additional history exists DTaP,Tdap,and Td Vaccines (3 - Td or Tdap) 10/04/2032 10/04/2022, 06/06/2012, 02/21/2005 Pneumococcal Vaccine: 65+ Years Completed 11/06/2015, 11/11/2014, 09/17/2014, Additional history exists Zoster Vaccines Completed 12/24/2017, 06/10, 02/21/2013 Influenza Vaccine (FLU shot) Completed 03/2022, 11/09/2021, 11/09/2020, Additional history exists GARDASIL-HPV IMMUNIZATION SERIES Aged Out No longer eligible based on patient's age to complete this topic Hepatitis B Aged Out No longer eligi ble based on patient's age to complete this topic MENINGOCOCCAL (MENACTRA/MENVEO) Aged Out No longer eligible based on patient's age to complete this topic documented as of this encounter Medical Devices Not on filedocumented as of this encounter Visit Diagnoses Diagnosis Sleep disturbance Sleep disturbance, unspecified documented in this encounter Care Teams Supervisor Carding Relationship Specialty Start Date End Date Myla Reich PA-C [address] [place] [address] PCP - General Physician Contact Center Engineer 09/22/21 documented as of this encounter
--- OUTSIDE RECORDS SUMMARY | 2023-08-17 08:55 | External Medical Summary | Summary of Care ---
Author Name Unknown Organization [facility] Address [address] [facility] [place] [address] Phone [phone] Care Team Providers Care Vision Impaired Teacher Name Role Phone Myla Reich PA-C Primary Care Provider [phone] [phone] Reason for Visit * Reason Onset Date Comments Medication Refill 07/22/2023 Encounter Details Date Type Department Care Team (Late st Contact Info) Description 07/22/[address] [facility] [address] [place] [address] Myla Reich PA-C [address] [place] [address] Chronic daily headache; Neuropathy, idiopathic; Pain in both feet; Sleep disturbance Allergies No known active allergiesdocumented as of this encounter (statuses as of 07/23/2023) Medications Medication Sig Dispensed Refills Start Date [...] by mouth in the morning. 0 Active Montelukast Sodium 10 MG Oral Tablet (Singulair)Indicat ions:Acute serous otitis media, recurrence not specified, unspecified [...] Tablet 0 04/02/2023 Active Ensure Complete Oral LiquidIndications: Loss of weight,Protein-daniel orie malnutrition, unspecified severity (HCC),Teeth missing Take 1 Can by mouth every evening. 7110 mL 11 04/10/2023 Active traZODone HCl 50 MG Oral Tablet (Desyrel)Indicatio ns:Sleep disturbance Take 2 tablets by mouth at bedtime 180 Tablet 2 07/23/2023 Active traZODone HCl 50 MG Oral Tablet (Desyrel)Indicatio ns:Sleep disturbance take 2 tablets by mouth at bedtime 180 Tablet 3 05/03/2023 07/22/2023 Discontinued (Refill) documented as of this encounter (statuses as of 07/23/2023) Active Problems Problem Noted Date Diagnosed Date Small vessel disease 03/28/2023 Stage 3b chronic kidney disease 01/18/2020 Overview: Per CKD protocol Neuropathy, idiopathic 01/03/2016 Sleep disturbance 10/27/2013 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 06/01/2011 History of tobacco use 08/04/2008 Alcohol Dependence, in Remission 09/06/2006 Dyslipidemia, goal LDL below 100 documented as of this encounter (statuses as of 07/23/2023) Resolved Problems Problem Noted Date Diagnosed Date [...] as of this encounter (statuses as of 07/23/2023) Immunizations Name Administration Dates Next Due Pneumococcal [...] encounter Miscellaneous Notes * Telephone Encounter - Gómez Muro, [facility] - 07/23/2023 11:50 AM EDT Signed Prescriptions: Disp Refills traZODone HCl 50 MG Oral Tablet (Desyrel) 180 Ta*2 Sig: Take 2 tablets by mouth at bedtime Authorizing Provider: MYLA REICH Ordering User: GÓMEZ MURO * Telephone Encounter - Alfredo Carreno, masonry contractor - 07/22/2023 8:28 AM EDT [facility]route [facility] [id number] [place] [address] Pending Prescriptions: Disp Refills traZODone HCl 50 MG Oral Tablet (Desyrel) 180 Ta*2 Sig: Take 2 tablets by mouth at bedtime Last Visit: 04/10/2023 (in office), Visit date not found (telemedicine) 08/19/2023 If no future appointments scheduled, and last appointment is greater than a year ago, please schedule patient for a follow-up appointment Last date the medication was ordered: 05/03/2023 Patient Phone Numbers Labs: Lab Results Component Value Date/Time CREAT 1.4 (H) 04/10/2023 08:47 AM CREAT 1.6 (H) 03/14/2020 08:11 AM POTASSIUM 4.1 04/10/2023 08:47 AM POTASSIUM 4.5 03/14/2020 08:11 AM TSH 2.64 04/10/2023 08:47 AM TSH 3.92 09/06/2006 08:44 AM LDLCALC 110 10/04/2022 08:29 AM LDLCALC 134 (H) 03/14/2020 08:11 AM LDLDIRECT NOT APPLICABLE 03/14/2020 08:11 AM ALT 16 04/10/2023 08:47 AM ALT 16 09/09/2019 09:35 AM HGBA1C 5.4 09/17/2014 02:10 PM documented in this encounter Plan of Treatment Upcoming Encounters Date Type Department Care Team (Late st Contact Info) Description 08/19/2023 11:00 AM EDT Office Visit [facility] [address] [facility] [place] [id number] Myla Reich PA-C [address] [facility] [place] [address] Scheduled Procedures Name Priority Associated Diagnoses Date/Ti me COLONOSCOPY FLEXIBLE PROXIMA L DIAGNOSTIC Recall Special screening for malignant neoplasms, colon Health Maintenance Due Date Last Done Comments COVID-19 Vaccine ( season) 2022 Albumin/Creatinine Ratio 10/05/2023 023, 03/21/2021, 03/14/2020, Additional history exists CKD PHOS USE SMARTSET 44577 10/05/202309/09, 03/21/2022, 04/05/2021, Additional history exists Depression Screening 10/05/2023 10/04/2022, 07/30/2017, 07/13/2014 (Discussed) GFR 10/09/2023 04/10/2023, 09/09, 03/21/2022, Additional history exists CKD HGB USE SMARTSET 48355 04/10/202404/10, 04/10/2023, 10/04/2022, Additional history exists DTaP,Tdap,and [...] as of this encounter Visit Diagnoses Diagnosis Chronic daily headache Headache Neuropathy, idiopathic Mononeuritis of unspecified site Pain in both feet Pain in limb Sleep disturbance Sleep disturbance, unspecified documented in this encounter Care Teams Vision Impaired Teacher Relationship Specialty Start Date End Date Myla Reich PA-C [address] [place] [address] PCP - General Physician Training Coordinator 09/22/21 documented as of this encounter
--- OUTSIDE RECORDS SUMMARY | 2023-08-17 08:55 | External Medical Summary | Summary of Care ---
Author Name Unknown Organization [facility] Address [address] [facility] [place] [address] Phone [phone] Care Team Providers Care Credit Risk Manager Name Role Phone Myla Reich PA-C Primary Care Provider [phone] [phone] Reason for Visit * Reason Onset Date Comments Medication Refill 07/22/2023 Encounter Details Date Type Department Care Team (Late st Contact Info) Description 07/22/2023 Refill [facility] [address] [place] [address] Myla Reich PA-C [address] [place] [address] Chronic daily headache; Neuropathy, idiopathic; Pain in both feet Allergies No known active allergiesdocumented as of this encounter (statuses as of 07/22/2023) Medications Medication Sig Dispensed Refills Start Date [...] at bedtime 180 Tablet 3 05/03/2023 Active Gabapentin 300 MG Oral Capsule (Neurontin)Indica tions:Chronic daily headache,Neuropat hy, idiopathic,Pain in both feet take 1 capsule by mouth four times a day as directed 360 Capsule 1 07/22/2023 Active Gabapentin 300 MG Oral Capsule (Neurontin)Indica tions:Chronic daily headache,Neuropat hy, idiopathic,Pain in both feet take 1 capsule by mouth four times a day as directed 360 Capsule 1 03/22/2023 07/22/2023 Discontinue d(Refill) documented as of this encounter (statuses as of 07/22/2023) Active Problems Problem Noted Date Diagnosed Date Small vessel disease 03/28/2023 Stage 3b chronic kidney disease 01/18/2020 Overview: Per CKD protocol Neuropathy, idiopathic 01/03/2016 Sleep disturbance 10/27/2013 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 06/01/2011 History of tobacco use 08/04/2008 Alcohol Dependence, in Remission 09/06/2006 Dyslipidemia, goal LDL below 100 documented as of this encounter (statuses as of 07/22/2023) Resolved Problems Problem Noted Date Diagnosed Date [...] as of this encounter (statuses as of 07/22/2023) Immunizations Name Administration Dates Next Due Pneumococcal [...] encounter Miscellaneous Notes * Telephone Encounter - Myla Reich PA-C - 07/22/2023 12:41 PM EDTSigned Prescriptions: Disp Refills Gabapentin 300 MG Oral Capsule (Neurontin) 360 Ca*1 Sig: take 1 capsule by mouth four times a day as directed Authorizing Provider: MYLA REICH * Telephone Encounter - Angelica Polo LPN - 07/22/2023 11:16 AM EDTPending Prescriptions: Disp Refills Gabapentin 300 MG Oral Capsule (Neurontin) 360 Ca*1 Sig: take 1 capsule by mouth four times a day as directed * Telephone Encounter - Alfredo Carreno, briquette machine operator helper - 07/22/2023 8:34 AM EDT Did you pend patient's preferred pharmacy and medication before forwarding?yes [facility] [id number] [place] [address] [place] Pending Prescriptions: Disp Refills Gabapentin 300 MG Oral Capsule (Neurontin)360 Ca*1 Sig: take 1 capsule by mouth four times a day as directed Last Visit: 04/10/2023 (in office), Visit date not found (telemedicine) Next Visit: 08/19/2023 If no future appointments scheduled, and last appointment is greater than a year ago, please schedule patient for a follow-up appointment Last date the medication was ordered: 03/22/2023 Is this request for a controlled substance?No Urine Drug Screen:No results found for this or any previous visit. Patient Phone Numbers Labs: Lab Results Component [...] Description 08/19/2023 11:00 AM EDT Office Visit [facility] [address] [place] [address] Myla Reich PA-C [address] [place], [place] [id number] Scheduled Procedures Name Priority Associated Diagnoses Date/Ti me COLONOSCOPY FLEXIBLE PROXIMA L DIAGNOSTIC Recall Special screening for malignant neoplasms, colon Health Maintenance Due Date Last Done Comments COVID-19 Vaccine ( season) 2022 Albumin/Creatinine Ratio 10/05/2023 023, 03/21/2021, 03/14/2020, Additional history exists CKD PHOS USE SMARTSET 00042 10/05/2023 07/2 09/2022, 03/21/2022, 04/05/2021, Additional history exists Depression Screening 10/05/2023 10/04/2022, 07/30/2017, 07/13/2014 (Discussed) GFR 10/09/2023 04/10/2023, 09/09, 03/21/2022, Additional history exists CKD HGB USE SMARTSET 86698 04/10/202404/10, 04/10/2023, 10/04/2022, Additional history exists DTaP,Tdap,and [...] Pain in both feet Pain in limb documented in this encounter Care Teams Credit Risk Manager Relationship Specialty Start Date End Date Myla Reich PA-C [address] [facility] [place] [address] PCP - General Physician Stock Receiver 09/22/21 documented as of this encounter
--- OUTSIDE RECORDS SUMMARY | 2023-08-17 08:56 | External Medical Summary | Summary of Care ---
Author Name Unknown Organization [facility] Address [address] [facility] [place] [address] Phone [phone] Care Team Providers Care Cone Runner Name Role Phone Myla Reich PA-C Primary Care Provider [phone] [phone] Reason for Visit * Reason Comments eRx-Medication Refill Encounter Details Date Type Department Care Team (Late st Contact Info) Description 03/20/2023 Refill [facility] [address] [place] [address] Myla Reich PA-C [address] [place] [address] Chronic daily headache; Neuropathy, idiopathic; Pain in both feet Allergies No known active allergiesdocumented as of this encounter (statuses as of 03/22/2023) Medications Medication Sig Dispensed Refills Start Date [...] by mouth in the morning. 0 Active traZODone HCl 50 MG Oral Tablet (Desyrel)Indicati ons:Sleep disturbance Take 2 tablets by mouth at bedtime 180 Tablet 3 03/28/2022 Active Gabapentin 300 MG Oral Capsule (Neurontin)Indica tions:Chronic daily headache,Neuropat hy, idiopathic,Pain in both feet take 1 capsule by mouth four times a day as directed 360 Capsule 1 03/22/2023 Active Gabapentin 300 MG Oral Capsule (Neurontin)Indica tions:Chronic daily headache,Neuropat hy, idiopathic,Pain in both feet take 1 capsule by mouth four times a day as directed 360 Capsule 1 09/17/2022 4 Discontinued documented as of this encounter (statuses as of 03/22/2023) Active Problems Problem Noted Date Diagnosed Date Stage 3b chronic kidney disease 01/18/2020 Overview: Per CKD protocol Neuropathy, idiopathic 01/03/2016 Sleep disturbance 10/27/2013 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 06/01/2011 History of tobacco use 08/04/2008 Alcohol Dependence, in Remission 09/06/2006 Dyslipidemia, goal LDL below 100 documented as of this encounter (statuses as of 03/22/2023) Resolved Problems Problem Noted Date Diagnosed Date [...] as of this encounter (statuses as of 03/22/2023) Immunizations Name Administration Dates Next Due Pneumococcal [...] Date Smoking Tobacco: Former Cigarettes 2 35 Q uit: 07/01/1997 Smokeless Tobacco: Never Comments:Stopped in 1997 [...] Telephone Encounter - Myla Reich PA-C - 03/22/2023 7:50 AM ESTSigned Prescriptions: Disp Refills Gabapentin 300 MG Oral Capsule (Neurontin) 360 Ca*1 Sig: take 1 capsule by mouth four times a day as directed Authorizing Provider: MYLA REICH * Telephone Encounter - Alber Burch, [facility] - 03/21/2023 3:34 PM EST Pending Prescriptions: Disp Refills Gabapentin 300 MG Oral Capsule [Pharmacy M*360 Ca*1 Sig: take 1 capsule by mouth four times a day as directed * Telephone Encounter - Alber Burch, [facility] - 03/21/2023 3:34 PM EST Refill pharmacists currently not authorized to approve refills for this class of medication per refill protocol. Please approve if appropriate. Pending Prescriptions: Disp Refills Gabapentin 300 MG Oral Capsule [Pharmacy M*360 Ca*1 Sig: take 1 capsule by mouth four times a day as directed 10/04/2022 (in office), Visit date not found (telemedicine) 04/10/2023 If no future appointments scheduled, and last appointment is greater than a year ago, please schedule patient for a follow-up appointment Last date the medication was ordered: 09/17/2022 [facility]acy: [id number] Is this request for a controlled substance? no Patient Phone Numbers Labs: Lab Results Component Value Date/Time CREAT 1.5 (H) 10/04/2022 08:29 AM CREAT 1.6 (H) 03/14/2020 08:11 AM POTASSIUM 4.5 10/04/2022 08:29 AM POTASSIUM 4.5 03/14/2020 08:11 AM TSH 3.92 09/06/2006 08:44 AM LDLCALC 110 10/04/2022 08:29 AM LDLCALC 134 (H) 03/14/2020 08:11 AM LDLDIRECT NOT APPLICABLE 03/14/2020 08:11 AM ALT 12 03/21/2021 08:40 AM ALT 16 09/09/2019 09:35 AM HGBA1C 5.4 09/17/2014 02:10 PM Thank You, Alber Burch, Pharm-D Clinical Pharmacist Telepharmacy 03/21/2023, 3:34 PM documented in this encounter Plan of Treatment Upcoming Encounters Date Type Department Care Team (Late st Contact Info) Description 04/10/2023 8:20 AM EST Office Visit [facility] [address] [place] [phone] Myla Reich PA-C [address] [place] [address] Scheduled Procedures Name Priority Associated Diagnoses Date/Ti me COLONOSCOPY FLEXIBLE PROXIMA L DIAGNOSTIC Recall Special screening for malignant neoplasms, colon Health Maintenance Due Date Last Done Comments COVID-19 Vaccine (#1) 03/29/1946 GFR 04/06/2023 10/04/2022, 03/11, 04/05/2021, Additional history exists Albumin/Creatinine Ratio 10/05/2023 023, 03/21/2021, 03/14/2020, Additional history exists CKD HGB USE SMARTSET 38767 10/05/202310/04, 04/05/2021, 04/05/2021, Additional history exists CKD PHOS USE SMARTSET 54688 10/05/202309/09, 03/21/2022, 04/05/2021, Additional history exists Depression Screening 10/05/2023 10/04/2022, 07/30/2017, 07/13/2014 (Discussed) DTaP,Tdap,and Td Vaccines (3 - Td or [...] limb documented in this encounter Care Teams Cone Runner Relationship Specialty Start Date End Date Myla Reich PA-C [address] [facility] [place] [id number] PCP - General Physician Retail Support Specialist 09/22/21 documented as of this encounter
--- OUTSIDE RECORDS SUMMARY | 2023-08-17 08:56 | External Medical Summary ---
Author Name Unknown Address Unknown Organization K01:[facility] - [address] [place] [address] Laboratory Report Ordering Provider Test Date Status MARYSOL VANN 04/10/2023 08:47:09 Final Observation Date Value Abnormality Reference (Units ) Status Ferritin 04/10/2023 08:47:09 65 30-400 (ng /mL) Final Performing Location [facility] - [address] [place] [address]
--- OUTSIDE RECORDS SUMMARY | 2023-08-17 08:56 | External Medical Summary | Summary of Care ---
Author Name Unknown Organization [facility] Address [address] [facility] [place] [address] Phone [phone] Care Team Providers Care Food Expeditor Name Role Phone Myla Reich PA-C Primary Care Provider [phone] [phone] Reason for Visit * Reason Comments Outpatient Testing Encounter Details Date Type Department Care Team (Late st Contact Info) Description 04/10/2023 9:00 AM EST [facility], [place] [address] [place] [address] [place] [address] [place] [address] [email or web address] Other*[id number] Allergies No known active allergiesdocumented as of this encounter (statuses as of 04/10/2023) Medications Medication Sig Dispensed Refills Start Date [...] Active traZODone HCl 50 MG Oral Tablet (Desyrel)Indications :Sleep disturbance Take 2 tablets by mouth at bedtime 180 Tablet 3 03/28/2022 Active Gabapentin 300 MG Oral Capsule (Neurontin)Indicatio ns:Chronic daily headache,Neuropathy, idiopathic,Pain in both feet take 1 capsule by mouth four times a day as directed 360 Capsule 1 03/22/2023 Active Montelukast Sodium 10 MG Oral Tablet (Singulair)Indicatio ns:Acute serous otitis media, recurrence not specified, unspecified [...] Tablet 0 04/02/2023 Active Ensure Complete Oral LiquidIndications:Lo ss of weight,Protein-calor ie malnutrition, unspecified severity (HCC),Teeth missing Take 1 Can by mouth every evening. 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 06/01/2011 History of tobacco use 08/04/2008 Alcohol Dependence, in Remission 09/06/2006 Dyslipidemia, goal LDL below 100 documented as of this encounter (statuses as of 04/10/2023) Resolved Problems Problem Noted Date Diagnosed Date [...] as of this encounter (statuses as of 04/10/2023) Immunizations Name Administration Dates Next Due Pneumococcal [...] on file documented as of this encounter Plan of Treatment Upcoming Encounters Date Type Department Care Team (Late st Contact Info) Description 05/03/2023 9:45 AM EST Imaging Radiology [facility], [address] [place] [address] 07/25/2023 8:20 AM EDT Office Visit [facility] [place] [address] [facility] [address] Myla Reich PA-C [address] [place] [facility] [place] [address] Scheduled Orders Name Type Priority Associated Diagnoses Orde r Schedule MYCODE SST1 Lab Routine [employer] Other*[id number] Ordered: 04/10/2023 MYCODE SST2 Lab Routine [employer] Other*[id number] Ordered: 04/10/2023 Scheduled Procedures Name Priority Associated Diagnoses Date/Ti me COLONOSCOPY FLEXIBLE PROXIMA L DIAGNOSTIC Recall Special screening for malignant neoplasms, colon Health Maintenance Due Date Last Done Comments COVID-19 Vaccine (#1) 03/29/1946 GFR 04/06/2023 10/04/2022, 03/11, 04/05/2021, Additional history exists Albumin/Creatinine Ratio 10/05/2023 023, 03/21/2021, 03/14/2020, Additional history exists CKD HGB USE SMARTSET 00833 10/05/202310/04, 04/05/2021, 04/05/2021, Additional history exists CKD PHOS USE SMARTSET 16739 10/05/202309/09, 03/21/2022, 04/05/2021, Additional history exists Depression [...] as of this encounter Visit Diagnoses Diagnosis [employer] Other*[id number] documented in this encounter Care Teams Food Expeditor Relationship Specialty Start Date End Date Myla Reich PA-C [address] [facility] [place] [address] PCP - General Physician Pension Administrator 09/22/21 documented as of this encounter
--- OUTSIDE RECORDS SUMMARY | 2023-08-17 08:56 | External Medical Summary | Summary of Care ---
Author Name Unknown Organization [facility] Address [address] [facility] [place] [address] Phone [phone] Care Team Providers Care Credit Card Clerk Name Role Phone Myla Reich PA-C Primary Care Provider [phone] [phone] Reason for Visit * Reason Onset Date Comments Appointment 04/10/2023 Encounter Details Date Type Department Care Team (Late st Contact Info) Description 04/10/2023 Telephone [address], [address] [place] [address] Sabina Humphrey, RT (R) Appointment Allergies No known active allergiesdocumented as of [...] encounter Miscellaneous Notes * Telephone Encounter - Sabina Humphrey RT (R) - 04/10/2023 12:50 PM EST Name: Andrés Leon Do you have any of the following: Pacemaker, stents, heart valves, aneurysm clips? No Have you ever worked with metal or have you ever gotten metal in your eyes? No Have you had a colonoscopy in the last 30 days? No On dialysis? No Do you have any dermals or body piercing's? No or ? Do you wear an insulin pump or diabetic monitor? no RT Jose (R) documented in this encounter Plan of Treatment Upcoming Encounters Date Type Department Care Team (Late st Contact Info) Description 04/11/2023 7:45 AM EST Imaging Radiology [address], [address] [place] [address] 07/25/2023 8:20 AM EDT [facility] [place] [address] [facility] [address] Myla Reich PA-C [address] [facility] [address] Scheduled Procedures Name Priority Associated Diagnoses Date/Ti me COLONOSCOPY FLEXIBLE PROXIMA L DIAGNOSTIC Recall Special screening for malignant neoplasms, colon Health Maintenance Due Date Last Done Comments COVID-19 Vaccine (#1) 03/29/1946 GFR 04/06/2023 10/04/2022, 03/11, 04/05/2021, Additional history exists Albumin/Creatinine Ratio 10/05/2023 023, 03/21/2021, 03/14/2020, Additional history exists CKD HGB USE SMARTSET 66360 10/05/202310/04, 04/05/2021, 04/05/2021, Additional history exists CKD PHOS USE SMARTSET 87816 10/05/202309/09, 03/21/2022, 04/05/2021, Additional history exists Depression [...] Not on filedocumented as of this encounter Care Teams Credit Card Clerk Relationship Specialty Start Date End Date Myla Reich PA-C [address] [place] [facility] [place] [address] PCP - General Physician Transmitter Tester 09/22/21 documented as of this encounter
--- OUTSIDE RECORDS SUMMARY | 2023-08-17 08:56 | External Medical Summary ---
Author Name Unknown Address Unknown Organization K01:[facility] - [address] [place] [address] Laboratory Report Ordering Provider Test Date Status MARYSOL VANN 04/10/2023 08:47:09 Final Observation Date Value Abnormality Reference (Units ) Status Borrelia burgdorferi IgG and IgM [Interpretation] in Serum by Immunoassay 04/10/2023 08:47:09 Negative Negative Final Performing Location [facility] - [address] [place] [address]
--- OUTSIDE RECORDS SUMMARY | 2023-08-17 08:56 | External Medical Summary ---
Author Name Unknown Address Unknown Organization K01:[facility] [place] - [address] [place] [address] Laboratory Report Ordering Provider Test Date Status MARYSOL VANN 04/10/2023 08:47:09 Final Observation Date Value Abnormality Reference (Units ) Status TSH 04/10/2023 08:47:09 2.64 0.27-4.20 (uIU/mL) Final Performing Location [facility] - [address] [place] [address]
--- OUTSIDE RECORDS SUMMARY | 2023-08-17 08:56 | External Medical Summary ---
Author Name Unknown Address Unknown Organization : Laboratory Report Ordering Provider Test Date Status MARYSOL VANN 04/10/2023 08:47:09 Final Observation Date Value Abnormality Reference (Units ) Status NICOTINIC ACID 04/10/2023 08:47:09 <20 (ng/m L) Final Due to the large variability in the metabolism of
nicotinic acid, the dosing preparation used
(immediate-release vs. extended release), and the mg
doses used, the serum concentrations may range from
less than 20 ng/mL to about 30,000 ng/mL. After oral
administration of an immediate-release tablet, peak
plasma concentrations occur in 4 to 5 hours. The
plasma half-life of nicotinic acid is about one
hour. In one study, fasting plasma concentrations
were reported to be less than 20 ng/mL. In another
study, it was reported that the administration of a
single 1000 mg extended-release tablet resulted in
mean nicotinic acid concentrations of less than
50 ng/mL.
This test was developed and its analytical performance
characteristics have been determined by [facility]. It has not been cleared or approved by the
FDA. This assay has been validated pursuant to the CLIA
regulations and is used for clinical purposes. NICOTINAMIDE 04/10/2023 08:47:09 <20 (ng/mL) Final Nicotinamide is a metabolite of nicotinic acid. Due
to the large variability in the metabolism of
nicotinic acid, plasma concentrations of this
metabolite are variable. In one study, fasting plasma
concentrations were reported to be approximately
40 ng/mL. In another study it was reported that the
administration of a single 1000 mg of extended-
release tablet of nicotinic acid resulted in a mean
peak nicotinamide concentration of 400 ng/mL between
5 and 10 hours post dose, decreasing to about
100 ng/mL by 16 hours post dose.
This test was developed and its analytical performance
characteristics have been determined by [facility]. It has not been cleared or approved by the
FDA. This assay has been validated pursuant to the CLIA
regulations and is used for clinical purposes.
Test performed by:
[facility]
[address] [facility] [place] [address]

[phone]
Religious Education Director: Edgar Ambrose M.D.
Test Reported by [facility],
[facility] [facility],
[address] [place], [place]
Dakota Torres M.D., Ph.D., Director of Laboratories
, CLIA [id number] Performing Location
--- OUTSIDE RECORDS SUMMARY | 2023-08-17 08:56 | External Medical Summary ---
Author Name Unknown Address Unknown Organization K01:[facility] [place] [facility] [address] [place] [address] Laboratory Report Ordering Provider Test Date Status MARYSOL VANN 04/10/2023 08:47:09 Final Observation Date Value Abnormality Reference (Units ) Status SYNC LEUKOCYTES IN BLOOD BY AUTOMATED COUNT 04/10/2023 08:47:09 5.84 4.00-10.80 (K/uL) Final Segs 04/10/2023 08:47:09 62.2 40.0-75.0 (%) Final Lymphs % 04/10/2023 08:47:09 24.1 18.0-42.0 (%) Final Monos 04/10/2023 08:47:09 10.3 1.0-11.0 (%) Final Eosinophils 04/10/2023 08:47:09 2.1 0.0-6.0 (%) Final Basos 04/10/2023 08:47:09 0.3 0.0-2.0 (%) Final Immature Granulocyte, Percent 04/10/2023 08:47:09 1.0 0.0-2.0 (%) Final Absolute Segs 04/10/2023 08:47:09 3.63 1.80-7.70 (K/uL) Final Lymphs, absolute 04/10/2023 08:47:09 1.41 1.00-4.80 (K/ul) Final Monos, Abs 04/10/2023 08:47:09 0.60 0.00-1.10 (K/uL) Final Eos, Abs 04/10/2023 08:47:09 0.12 0.00-0.70 (K/uL) Final Basos, Abs 04/10/2023 08:47:09 0.02 0.00-0.20 (K/uL) Final Immature Granulocytes, Number 04/10/2023 08:47:09 0.06 0.00-0.20 (K/uL) Final Performing Location [facility] [place] [address] [facility] [address]
--- OUTSIDE RECORDS SUMMARY | 2023-08-17 08:56 | External Medical Summary | Summary of Care ---
Author Name Unknown Organization [facility] Address [address] [facility] [place] [address] Phone [phone] Care Team Providers Care Salt Operator Name Role Phone Myla Reich PA-C Primary Care Provider [phone] Reason for Referral * Precert (Within 24 hrs (call dept; emergent)) - Pending Review Specialty Diagnoses / Procedures Referred By Jacobo coon Referred To Contact Radiology Diagnoses Dizziness Raynaud's disease without gangrene Small vessel disease (HCC) Procedures MRI BRAIN WITHOUT CONTRAST Myla Reich PA-C [address] [place] [address] Referral ID Status Reason Start Date Expiration Date V isits Requested Visits Authorized [id number] Pending Review 04/10/2023 999 999 Reason for Visit * Reason Comments Follow Up Has been feeling diz zy since fall 3 weeks ago Encounter Details Date Type Department Care Team (Late st Contact Info) Description 04/10/2023 8:20 AM EST Office Visit [facility] [address] [place] [address] Myla Reich PA-C [address] [place] [address] Dizziness*; Low hemoglobin; Stage 3b chronic kidney disease (HCC); Alcohol dependence in remission (HCC); Raynaud's disease without gangrene; Small vessel disease (HCC); Loss of weight; Protein-calorie malnutrition, unspecified severity (HCC); Teeth missing Allergies No known active allergiesdocumented as of [...] Split, I IV3, With Preserve, Inj 11/07/2013,12/08/2012,12/04/2011,12/01,12/19/2009,12/13/2008,01/19/2008 ,01/06/2007,01/09/2006,01/25/2005,01/09 TD - Tetanus/Diptheria (ADULT) 02/21/2005 TDAP (age 10 and older)(Boostrix) 10/04/2022, Varicella [...] money to buy more. Never true 10/05/19 Within the past 12 months, t he [...] on file documented as of this encounter Last Filed Vital Signs Vital Sign Reading Time Taken Comments Blood Pressure 128/72 04/10/2023 8:19 AM EST Pulse 58 04/10/2023 8:19 AM EST Temperature 36.4 C (97.6 F) 04/10/2023 8:19 AM ES T Respiratory Rate 16 04/10/2023 8:19 AM EST Oxygen Saturation 99% 04/10/2023 8:19 AM EST Inhaled Oxygen Concentration - - Weight 69.9 kg (154 lb) 04/10/2023 8:19 AM EST Height 180.3 cm (5' 11") 04/10/2023 8:19 AM EST Body Mass Index 21.48 04/10/2023 8:19 AM EST documented in this encounter Progress Notes * Myla Reich PA-C - 04/10/2023 8:26 AM EST Images from the original note were not included. History of Present Illness Andrés Leon is a 77 year old male that presents for Follow Up (Has been feeling dizzy since fall3 weeks ago ) Here for reg return Last time he was in, just a few weels ago, he had a fall At the time, we had attributed this to possibly inner ear and had treated him The dizziness is am only that he has been having - by afternoon he is fine He has no upper teeth. He has to cook his food and make it soft and put it through his chopper. Dropping weight. He has a fingertip on his L hand that turns white and is cold He can rub it and get it warm MRI scan of the brain with and without contrast,07/18/2015 8:56 AM HISTORY balance difficulty, new onset headaches, rule out cerebellar lession or other mass COMPARISON None TECHNIQUE Multiplanar, multisequence MR imaging of the brain was performed before and after administration ofIV contrast using standard protocol. Contrast Utilization Medication Name: GADAVIST Amount Prepared: 10 milliliter Amount Used: 8 milliliter Amount Wasted: 2 milliliter Route of Administration: INTRAVENOUS FINDINGS The brain shows normal morphology, signal intensity, and volume for age. No focal parenchymal lesions are seen. There is no intracranial hemorrhage, mass effect, hydrocephalus, midline shift, or extra-axial collection. Diffusion-weighted sequence shows no restricted diffusion suspicious for acute ischemic infarction. No abnormal enhancement is noted on the post-contrast images. On FLAIR imaging, there is a large amount of nonspecific white matter change. Age related volume loss also noted. The pituitary gland, brainstem, cerebellum, corpus callosum, pineal region, and other midline structures are normal in appearance. Expected intracranial vascular flow voids are patent. Paranasal sinuses, mastoids, and orbits are unremarkable. The craniovertebral junction is within normal limits. IMPRESSION No acute findings. Age related volume loss and white matter changes. White matter changes are somewhat greater than expected for age. We have no prior similar studies for comparison. In the proper clinical context, a differential such as demyelination, Lyme disease, vascular disease, should be considered. White matter changes can result from chronic conditions such as hypertension, diabetes, cigarette smoking. Physical Exam Vitals: 04/10/23 0819 Temp: 36.4 C (97.6 F) Pulse: 58 Resp: 16 SpO2: 99% BP: 128/72 BMI: 21.49 BP Readings from Last 3 Encounters: 04/10/23 128/72 03/28/23 148/58 10/04/22 142/60 Wt Readings from Last 3 Encounters: 04/10/23 69.9 kg (154 lb) 03/28/23 72.8 kg (160 lb 6.4 oz) 10/04/22 73.5 kg (162 lb) BMI Readings from Last 3 Encounters: 04/10/23 21.48 kg/m 03/28/23 22.37 kg/m 10/04/22 22.59 kg/m Ht Readings from Last 3 Encounters: 04/10/23 1.803 m (5' 11") 03/28/23 1.803 m (5' 11") 10/04/22 1.803 m (5' 11") General: alert, healthy, and no distress Head: Normocephalic, No masses, lesions, tenderness or abnormalities Eye Exam: PERRLA, extraocular movements intact, conjunctiva are pink and non- injected, sclera clear Ears: External ears normal, Canals clear, TM's Normal Nose: no mucosal erythema, no mucosal edema, no purulent discharge Oropharynx: no exudate, no erythema, lips, buccal mucosa, and tongue normal, and mucous membranes are moist Neck: supple, no adenopathy, no bruits, thyroid normal size, non-tender, without nodularity Heart: regular rate & rhythm, no murmur, no gallops, S-1 normal, and S-2 normal Lungs: chest symmetric with normal AP diameter, no chest deformities noted, no chest wall tenderness, lungs clear to auscultation Extremities: less than 2 second capillary refill, no joint deformities, effusion, or inflammation Neuro Exam: alert & oriented x 3 with fluent speech, no focal motor/sensory deficits, gait normal, reflexes normal and symmetric, cn 2-12 intact Skin: skin color, texture, turgor are normal, no rashes or significant lesions Assessment and Plan Dizziness (Primary) - CBC WITH WBC DIFFERENTIAL AND ANEMIA REFLEX WORKUP; Future; Expected date: 04/10/2023 - VITAMIN B3; Future; Expected date: 04/10/2023 - VITAMIN B1 (THIAMINE), BLOOD, LC/MS/MS; Future; Expected date: 04/10/2023 - VITAMIN B12; Future; Expected date: 04/10/2023 - 25-HYDROXY VITAMIN D; Future; Expected date: 04/10/2023 - COMPREHENSIVE METABOLIC PANEL; Future; Expected date: 04/10/2023 - FERRITIN; Future; Expected date: 04/10/2023 - LYME DISEASE ANTIBODY SCREEN WITH REFLEX TO CONFIRMATION; Future; Expected date: 04/10/2023 - MRI BRAIN WITHOUT CONTRAST; Future; Expected date: 04/10/2023 - TSH; Future; Expected date: 04/10/2023 - T4, FREE; Future; Expected date: 04/10/2023 Low hemoglobin - CBC WITH WBC DIFFERENTIAL AND ANEMIA REFLEX WORKUP; Future; Expected date: 04/10/2023 - VITAMIN B12; Future; Expected date: 04/10/2023 - FERRITIN; Future; Expected date: 04/10/2023 Stage 3b chronic kidney disease (HCC) - 25-HYDROXY VITAMIN D; Future; Expected date: 04/10/2023 - COMPREHENSIVE METABOLIC PANEL; Future; Expected date: 04/10/2023 Alcohol dependence in remission (HCC) - CBC WITH WBC DIFFERENTIAL AND ANEMIA REFLEX WORKUP; Future; Expected date: 04/10/2023 - VITAMIN B3; Future; Expected date: 04/10/2023 - VITAMIN B1 (THIAMINE), BLOOD, LC/MS/MS; Future; Expected date: 04/10/2023 - VITAMIN B12; Future; Expected date: 04/10/2023 Raynaud's disease without gangrene - ANTINUCLEAR ANTIBODY (DESTINY) EIA SCREEN WITH REFLEX AB QUANT; Future; Expected date: 04/10/2023 - ERYTHROCYTE SEDIMENTATION RATE (ESR); Future; Expected date: 04/10/2023 - MRI BRAIN WITHOUT CONTRAST; Future; Expected date: 04/10/2023 Small vessel disease (HCC) - MRI BRAIN WITHOUT CONTRAST; Future; Expected date: 04/10/2023 Loss of weight - Ensure Complete Oral Liquid; Take 1 Can by mouth every evening. - TSH; Future; Expected date: 04/10/2023 - T4, FREE; Future; Expected date: 04/10/2023 Protein-calorie malnutrition, unspecified severity (HCC) - Ensure Complete Oral Liquid; Take 1 Can by mouth every evening. Teeth missing - Ensure Complete Oral Liquid; Take 1 Can by mouth every evening. Wrap-Up Patient needs mri Lab work as well - looking for the source of his dizziness Need to ascertain if the small vessel disease and global volume loss has caused issue or if he has sustained damage in his fall Time: I spent a total of 20-29 minutes (exact time 29 mins) on the date of service in preparation, delivery, and documentation of the care provided to Andrés Leon excluding any time spent in the performance of separately billed services. Myla Reich PA-C 04/10/2023 8:42 AM documented in this encounter Nursing Notes * Vickie Horowitz LPN - 04/10/2023 8:22 AM EST The patient has been properly identified by confirmation of name and date of . Chief Complaint Patient presents with Follow Up Has been feeling dizzy since fall 3 weeks ago documented in this encounter Plan of Treatment Upcoming Encounters Date Type Department Care Team (Late st Contact Info) Description 04/10/2023 9:00 AM EST Laboratory [facility] [address] [place] [address] [facility] [address] [place] [address] [facility] Other*[id number] Pending Results Name Type Priority Associated Diagnoses Date /Time CBC WITH WBC DIFFERENTIAL AND ANEMIA REFLEX WORKUP Lab Routine Low hemoglobin Alcohol dependence in remission (HCC) Dizziness 04/10/2023 8:47 AM EST VITAMIN B3 Lab Routine Alcohol dependence in remission (HCC) Dizziness 04/10/2023 8:47 AM EST VITAMIN B1 (THIAMINE), BLOOD, LC/MS/MS Lab Routine Alcohol dependence in remission (HCC) Dizziness 04/10/2023 8:47 AM EST VITAMIN B12 Lab Routine Low hemoglobin Alcohol dependence in remission (HCC) Dizziness 04/10/2023 8:47 AM EST 25-HYDROXY VITAMIN D Lab Routine Stage 3b chronic kidney disease (HCC) Dizziness 04/10/2023 8:47 AM EST COMPREHENSIVE METABOLIC PANEL Lab Routine Stage 3b chronic kidney disease (HCC) Dizziness 04/10/2023 8:47 AM EST FERRITIN Lab Routine Low hemoglobin Dizziness 04/10/2023 8:47 AM EST LYME DISEASE ANTIBODY SCREEN WITH REFLEX TO CONFIRMATION Lab Routine Dizziness 04/10/2023 8:47 AM EST ANTINUCLEAR ANTIBODY (DESTINY) EIA SCREEN WITH REFLEX AB QUANT Lab Routine Raynaud's disease without gangrene 04/10/2023 8:47 AM EST ERYTHROCYTE SEDIMENTATION RATE (ESR) Lab Routine Raynaud's disease without gangrene 04/10/2023 8:47 AM EST TSH Lab Routine Dizziness Loss of weight 04/10/2023 8:47 AM EST T4, FREE Lab Routine Dizziness Loss of weight 04/10/2023 8:47 AM EST ANEMIA CBC Lab Routine Low hemoglobin Alcohol dependence in remission (HCC) Dizziness 04/10/2023 8:47 AM EST DIFFERENTIAL, AUTOMATED Lab Routine Low hemoglobin Alcohol dependence in remission (HCC) Dizziness 04/10/2023 8:47 AM EST ANEMIA REFLEX CHEMISTRY HOLD Lab Routine Low hemoglobin Alcohol dependence in remission (HCC) Dizziness 04/10/2023 8:47 AM EST LYME DISEASE ANTIBODY SCREEN Lab Routine Dizziness 04/10/2023 8:47 AM EST ANTINUCLEAR ANTIBODY (DESTINY) SCREEN, JOSE Lab Routine Raynaud's disease without gangrene 04/10/2023 8:47 AM EST Scheduled Orders Name Type Priority Associated Diagnoses Orde r Schedule CBC WITH WBC DIFFERENTIAL AND ANEMIA REFLEX WORKUP Lab Routine Low hemoglobin Alcohol dependence in remission ([facility]) Dizziness Expected: 04/10/2023 (Approximate), Expires: 04/10/2024 VITAMIN B3 Lab Routine Alcohol dependence in remission ([facility]) Dizziness Expected: 04/10/2023, Expires: 04/10/2024 VITAMIN B1 (THIAMINE), BLOOD, LC/MS/MS Lab Routine Alcohol dependence in remission ([facility]) Dizziness Expected: 04/10/2023, Expires: 04/10/2024 VITAMIN B12 Lab Routine Low hemoglobin Alcohol dependence in remission ([facility]) Dizziness Expected: 04/10/2023 (Approximate), Expires: 04/09/2024 25-HYDROXY VITAMIN D Lab Routine Stage 3b chronic kidney disease (HCC) Dizziness Expected: 04/10/2023 (Approximate), Expires: 04/09/2024 COMPREHENSIVE METABOLIC PANEL Lab Routine Stage 3b chronic kidney disease (HCC) Dizziness Expected: 04/10/2023 (Approximate), Expires: 04/09/2024 FERRITIN Lab Routine Low hemoglobin Dizziness Expected: 04/10/2023 (Approximate), Expires: 04/09/2024 LYME DISEASE ANTIBODY SCREEN WITH REFLEX TO CONFIRMATION Lab Routine Dizziness Expected: 04/10/2023 (Approximate), Expires: 04/09/2024 ANTINUCLEAR ANTIBODY (DESTINY) EIA SCREEN WITH REFLEX AB QUANT Lab Routine Raynaud's disease without gangrene Expected: 04/10/2023 (Approximate), Expires: 04/09/2024 ERYTHROCYTE SEDIMENTATION RATE (ESR) Lab Routine Raynaud's disease without gangrene Expected: 04/10/2023 (Approximate), Expires: 04/09/2024 MRI BRAIN WITHOUT CONTRAST Medical Imaging STAT Dizziness Raynaud's disease without gangrene Small vessel disease (HCC) Expected: 04/10/2023, Expires: 05/08/2024 TSH Lab Routine Dizziness Loss of weight Expected: 04/10/2023 (Approximate), Expires: 04/09/2024 T4, FREE Lab Routine Dizziness Loss of weight Expected: 04/10/2023 (Approximate), Expires: 04/09/2024 Scheduled Procedures Name Priority Associated Diagnoses Date/Ti me COLONOSCOPY FLEXIBLE PROXIMA L DIAGNOSTIC Recall Special screening for malignant neoplasms, colon Health Maintenance Due Date Last Done Comments COVID-19 Vaccine (#1) 03/29/1946 GFR 04/06/2023 10/04/2022, 03/11, 04/05/2021, Additional history exists Albumin/Creatinine Ratio 10/05/2023 023, 03/21/2021, 03/14/2020, Additional history exists CKD HGB USE SMARTSET 13161 10/05/202310/04, 04/05/2021, 04/05/2021, Additional history exists CKD PHOS USE SMARTSET 41855 10/05/202309/09, 03/21/2022, 04/05/2021, Additional history exists Depression [...] as of this encounter Visit Diagnoses Diagnosis Dizziness- Primary Dizziness and giddiness Low hemoglobin Anemia, unspecified Stage 3b chronic kidney disease (HCC) Alcohol dependence in remission (HCC) Other and unspecified alcohol dependence, in remission Raynaud's disease without gangrene Small vessel disease (HCC) Peripheral vascular disease, unspecified Loss of weight Protein-calorie malnutrition, unspecified severity (HCC) Teeth missing Acquired absence of teeth, unspecified [employer] Other*[id number] documented in this encounter Care Teams Salt Operator Relationship Specialty Start Date End Date Myla Reich PA-C [address] [place] [address] PCP - General Physician Manufacturing Intern 09/22/21 documented as of this encounter
--- OUTSIDE RECORDS SUMMARY | 2023-08-17 08:56 | External Medical Summary ---
Author Name Unknown Address Unknown Organization : Laboratory Report Ordering Provider Test Date Status MARYSOL VANN 04/10/2023 08:47:09 Final Observation Date Value Abnormality Reference (Units ) Status Thiamine [Moles/volume] in Blood 04/10/2023 08:47:09 168 78-185 (nmol/L) Final Vitamin supplementation with in 24 hours prior to
blood draw may affect the accuracy of the results.
This test was developed and its analytical performance
characteristics have been determined by [facility], [place]. It has
not been cleared or approved by the U.S. Food and Drug
Administration. This assay has been validated pursuant
to the CLIA regulations and is used for clinical
purposes.

Test Performed at:
[facility]
[address] [facility]
[place] [address]
Dakota Torres M.D., Ph.D.,Director of Laboratories Performing Location
--- OUTSIDE RECORDS SUMMARY | 2023-08-17 08:56 | External Medical Summary | Summary of Care ---
Author Name Unknown Organization [facility] Address [address] [facility] [place] [address] Phone [phone] Care Team Providers Care Ranch Rider Name Role Phone Myla Reich PA-C Primary Care Provider [phone] Reason for Visit * Reason Comments Acute Pt states that on he had a fall in his bathroom, hit his head, L arm and he is having a hip pain Encounter Details Date Type Department Care Team (Late st Contact Info) Description 03/28/2023 10:20 AM EST Office Visit [facility] [address] [place] [address] Myla Reich PA-C [address] [place] [address] Personal history of fall*; Pain in right buttock; Contusion of left elbow, initial encounter; 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); Stage 3b chronic kidney disease (HCC); Small vessel disease (HCC); Acute serous otitis media, recurrence not specified, unspecified laterality; Acute maxillary sinusitis, recurrence not specified Allergies No known active allergiesdocumented as of this encounter (statuses as of 03/28/2023) Medications Medication Sig Dispensed Refills Start Date [...] Active traZODone HCl 50 MG Oral Tablet (Desyrel)Indication s:Sleep disturbance Take 2 tablets by mouth at bedtime 180 Tablet 3 03/28/2022 Active Gabapentin 300 MG Oral Capsule (Neurontin)Indicati ons:Chronic daily headache,Neuropathy , idiopathic,Pain in both feet take 1 capsule by mouth four times a day as directed 360 Capsule 1 03/22/2023 Active Amoxicillin-Pot Clavulanate 875-125 MG Oral Tablet (Augmentin)Indicati ons:Acute serous otitis media, recurrence not specified, unspecified laterality,Acute maxillary sinusitis, recurrence not specified Take 1 Tablet by mouth in the morning and 1 Tablet before bedtime. Do all this for 10 days. 20 Tablet 0 03/28/2023 04/07/2023 Active Montelukast Sodium 10 MG Oral Tablet (Singulair)Indicati ons:Acute serous otitis media, recurrence not specified, unspecified laterality,Acute maxillary sinusitis, recurrence not specified Take 1 Tablet by mouth in the morning. 30 Tablet 0 03/28/2023 Active documented as of this encounter (statuses as of 03/28/2023) Active Problems Problem Noted Date Diagnosed Date Small vessel disease 03/28/2023 Stage 3b chronic kidney disease 01/18/2020 Overview: Per CKD protocol Neuropathy, idiopathic 01/03/2016 Sleep disturbance 10/27/2013 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 06/01/2011 History of tobacco use 08/04/2008 Alcohol Dependence, in Remission 09/06/2006 Dyslipidemia, goal LDL below 100 documented as of this encounter (statuses as of 03/28/2023) Resolved Problems Problem Noted Date Diagnosed Date [...] as of this encounter (statuses as of 03/28/2023) Immunizations Name Administration Dates Next Due Pneumococcal [...] 35 Q uit: 07/01/1997 Smokeless Tobacco: Never Tobacco Cessation:Counseling Given: Not Answered Comments:Stopped in 1997 abruptly and hasn't gone back. Alcohol Use Standard [...] Sign Reading Time Taken Comments Blood Pressure 148/58 03/28/2023 9:54 AM EST Pulse 78 03/28/2023 9:54 AM EST Temperature 36.4 C (97.5 F) 03/28/2023 9:54 AM ES T Respiratory Rate 18 03/28/2023 9:54 AM EST Oxygen Saturation 98% 03/28/2023 9:54 AM EST Inhaled Oxygen Concentration - - Weight 72.8 kg (160 lb 6.4 oz) 03/28/2023 9:54 A M EST Height 180.3 cm (5' 11") 03/28/2023 9:54 AM EST Body Mass Index 22.37 03/28/2023 9:54 AM EST documented in this encounter Progress Notes * Myla Reich PA-C - 03/28/2023 9:54 AM EST Images from the original note were not included. History of Present Illness Andrés Leon is a 77 year old male that presents for Acute (Pt states that on Saturday he had a fall in his bathroom, hit his head, L arm and he is having a hip pain ) Here for a few issues Blowing his nose a lot It is coming out rather easily Some is thick, most is clear No ear pain No headaches Denies LOC. Had a fall in his bathroom on Saturday Was up to use the restroom around 2:15 am. For some reason he fell. Not sure why Lost his balance, dropped to the ground Hit the left side of his head Also hit his L elbow. This broke open. (Tetanus is current) Also his R buttocks / hip area He did lose control of his bladder He showered immediately after Lost his balance in the shower Saturday was the next time he could do anything. If he hits the wrong spot on his buttocks, he jumps. Physical Exam Vitals: 03/28/23 0954 Temp: 36.4 C (97.5 F) Pulse: 78 Resp: 18 SpO2: 98% BP: 148/58 BMI: 22.38 BP Readings from Last 3 Encounters: 03/28/23 148/58 10/04/22 142/60 06/13/22 146/62 Wt Readings from Last 3 Encounters: 03/28/23 72.8 kg (160 lb 6.4 oz) 10/04/22 73.5 kg (162 lb) 06/13/22 73.6 kg (162 lb 4.8 oz) BMI Readings from Last 3 Encounters: 03/28/23 22.37 kg/m 10/04/22 22.59 kg/m 06/13/22 22.64 kg/m Ht Readings from Last 3 Encounters: 03/28/23 1.803 m (5' 11") 10/04/22 1.803 m (5' 11") 03/28/22 1.803 m (5' 11") General: alert, healthy, and no distress Head: Normocephalic, No masses, lesions, tenderness or abnormalities Eye Exam: PERRLA, extraocular movements intact, conjunctiva are pink and non- injected, sclera clear Ears: External ears normal, Canals clear, R TM air and or fluid interface, L TM dull, erythematous,and retracted Nose: no purulent discharge, mucosal edema, mucosal erythema Oropharynx: no exudate, no erythema, lips, buccal mucosa, and tongue normal, mucous membranes are moist, and post nasal drip Neck: supple, no bruits, thyroid normal size, non-tender, without nodularity, large tender anteriorcervical adenopathy bilaterally, trachea midline Heart: regular rate & rhythm, no murmur, no gallops, S-1 normal, and S-2 normal Lungs: chest symmetric with normal AP diameter, no chest deformities noted, no chest wall tenderness, lungs clear to auscultation Extremities: less than 2 second capillary refill, L forearm 6 cm X 5 cm contusion of soft tissue. At the olecranon distally he has a 1 cm scabbed abrasion, no evidence of infection. R hand - ttp at th thenar eminence, no pain with manipulation fo the thumb or long asix pressure. 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 Do all this for 10 days. - Montelukast Sodium 10 MG Oral Tablet (Singulair); Take 1 Tablet by mouth in the morning. Acute maxillary sinusitis, recurrence not specified - Amoxicillin-Pot Clavulanate 875-125 MG Oral Tablet (Augmentin); Take 1 Tablet by mouth in the morning and 1 Tablet before bedtime. Do all this for 10 days. - Montelukast Sodium 10 MG Oral Tablet (Singulair); Take 1 Tablet by mouth in the morning. Rule out fracture of hip Treat sinus - etd may be source of fall comfort care measures discussed saline nasal spray with bulb syringe plenty of fluids Tylenol per dosing recommendations for low grade fever humidifier Wrap-Up Time: I spent a total of 10-19 minutes (exact time 19 mins) on the date of service in preparation, delivery, and documentation of the care provided to Andrés Leon excluding any time spent in the performance of separately billed services. Myla Reich PA-C 03/28/2023 10:12 AM documented in this encounter Nursing Notes * Giovanna Berger CCMA - 03/28/2023 9:54 AM EST Andrés Leon is a 77 year old male who presents today for Chief Complaint Patient presents with Acute Pt states that on Saturday he had a fall in his bathroom, hit his head, L arm and he is having a hip pain documented in this encounter Plan of Treatment Upcoming Encounters Date Type Department Care Team (Late st Contact Info) Description 04/10/2023 8:20 AM EST Office Visit [facility] [address] [place] [phone] Myla Reich PA-C [address] [facility] [place] [id number] Scheduled Orders Name Type Priority Associated Diagnoses Orde r Schedule XR HIP UNILAT 2-3 VIEWS INCLUDING AP PELVIS Medical Imaging STAT Personal history of fall Pain in right buttock Ordered: 03/28/2023 Scheduled Procedures Name Priority Associated Diagnoses Date/Ti me COLONOSCOPY FLEXIBLE PROXIMA L DIAGNOSTIC Recall Special screening for malignant neoplasms, colon Health Maintenance Due Date Last Done Comments COVID-19 Vaccine (#1) 03/29/1946 GFR 04/06/2023 10/04/2022, 03/11, 04/05/2021, Additional history exists Albumin/Creatinine Ratio 10/05/2023 023, 03/21/2021, 03/14/2020, Additional history exists CKD HGB USE SMARTSET 23477 10/05/202310/04, 04/05/2021, 04/05/2021, Additional history exists CKD PHOS USE SMARTSET 33470 10/05/202309/09, 03/21/2022, 04/05/2021, Additional history exists Depression [...] as of this encounter Visit Diagnoses Diagnosis Personal history of fall- Primary Pain in right buttock Mylagia and myositis, unspecified Contusion of left elbow, initial encounter 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
--- OUTSIDE RECORDS SUMMARY | 2023-08-17 08:56 | External Medical Summary ---
Author Name Unknown Address Unknown Organization [id number]:LABORATORY [facility] [place] - [address] [place] [address] Laboratory Report Ordering Provider Test Date Status MARYSOL VANN 04/10/2023 08:47:09 Final Observation Date Value Abnormality Reference (Units ) Status WBC, Total 04/10/2023 08:47:09 5.84 4.00-10.8 0 (K/uL) Final RBC 04/10/2023 08:47:09 4.21 4.50-5.25 (M/uL) Final Hemoglobin 04/10/2023 08:47:09 13.7 Below low normal 14 .0-16.8 (g/dL) Final Anemia reflex testing trigge rs on a HGB < 12.0 for Females and HGB < 13.0 for Males in accordance with the WHO Anemia Guidelines
Anemia reflex testing triggers on a HGB < 12.0 for Females and HGB < 13.0 for Males in accordance with the WHO Anemia Guidelines HCT 04/10/2023 08:47:09 41.9 40.0-48.4 (%) Final MCV 04/10/2023 08:47:09 99.5 82.0-99.5 (fL) Final MCH 04/10/2023 08:47:09 32.5 27.0-34.0 (pg) Final MCHC 04/10/2023 08:47:09 32.7 32.0-36.0 (g/dL) Final RDW 04/10/2023 08:47:09 12.5 11.5-15.5 (%) Final Platelets 04/10/2023 08:47:09 199 140-400 (K /uL) Final MPV 04/10/2023 08:47:09 10.8 6.6-11.1 ( fL) Final Nucleated erythrocytes/100 leukocytes [Ratio] in Blood by Automated count 04/10/2023 08:47:09 0 <=0 (/100 WBCs) Fi [facility] Performing Location LABORATORY [facility] [place] - [address] [facility] [address]
--- OUTSIDE RECORDS SUMMARY | 2023-08-17 08:56 | External Medical Summary ---
Author Name Unknown Address Unknown Organization [id number]:LABORATORY [facility] [place] - [address] [place] [place] [address] Laboratory Report Ordering Provider Test Date Status SOOJOAOMAGDIEL 04/10/2023 08:47:09 Final Observation Date Value Abnormality Reference (Units ) Status Erythrocyte sedimentation rate by Photometric method 04/10/2023 08:47:09 3 <20 (mm/hour) Final Performing Location LABORATORY [facility] - [address] [place] [address]
--- OUTSIDE RECORDS SUMMARY | 2023-08-17 08:56 | External Medical Summary | Summary of Care ---
Author Name Unknown Organization [facility] Address [address] [facility] [place] [address] Phone [phone] Care Team Providers Care Pyridine Operator Name Role Phone Myla Reich PA-C Primary Care Provider [phone] Reason for Referral * Precert (Within 24 hrs (call dept; emergent)) - Pending Review Specialty Diagnoses / Procedures Referred By Jacobo coon Referred To Contact Radiology Diagnoses Dizziness Raynaud's disease without gangrene Small vessel disease (HCC) Procedures MRI BRAIN WITHOUT CONTRAST Myla Reich PA-C [address] [facility] [place] [address] Referral ID Status Reason Start Date Expiration Date V isits Requested Visits Authorized [id number] Pending Review 04/10/2023 999 999 Reason for Visit * Reason Comments Follow Up Has been feeling diz zy since fall 3 weeks ago Encounter Details Date Type Department Care Team (Late st Contact Info) Description 04/10/2023 8:20 AM EST Office Visit [facility] [address] [place] [facility] [place] [address] Myla Reich PA-C [address] [place] [address] Dizziness*; Low hemoglobin; Stage 3b chronic kidney [...] Description 04/10/2023 9:00 AM EST Laboratory Laboratory, [place] [address] [place] [facility] [place] [phone] [facility] [address] [facility] [place] [id number] Personal Style F[employer] Other*[id number] 05/03/2023 9:45 AM EST Imaging Radiology [facility] [address] [facility], [address] [place] [address] 07/25/2023 8:20 AM EDT Office Visit [facility] [place] [address] [facility] [phone] Myla Reich PA-C [address] [facility] [place] [phone] Pending Results Name Type Priority Associated Diagnoses [...] Routine Low hemoglobin Alcohol dependence in remission ([facility]) Dizziness 04/10/2023 8:47 AM EST ANEMIA REFLEX [...] hemoglobin Alcohol dependence in remission (HCC) Dizziness Expected: 04/10/2023 (Approximate), Expires: 04/10/2024 VITAMIN B3 Lab Routine Alcohol dependence in remission ([facility]) Dizziness Expected: 04/10/2023, Expires: 04/10/2024 VITAMIN B1 (THIAMINE), BLOOD, LC/MS/MS Lab Routine Alcohol dependence in remission ([facility]) Dizziness Expected: 04/10/2023, Expires: 04/10/2024 VITAMIN B12 Lab Routine Low hemoglobin Alcohol dependence in remission ([facility]) Dizziness Expected: 04/10/2023 (Approximate), Expires: 04/09/2024 25-HYDROXY [...] Additional history exists CKD HGB USE SMARTSET 14967 10/05/202310/04, 04/05/2021, 04/05/2021, Additional history exists CKD PHOS USE SMARTSET 47360 10/05/2023 0709/2022, 03/21/2022, 04/05/2021, Additional history exists Depression Screening [...] Acquired absence of teeth, unspecified [employer] Other*[id number] documented in this encounter Care Teams Pyridine Operator Relationship Specialty Start Date End Date Myla Reich PA-C [address] [place] [address] PCP - General Physician Ore Grader 09/22/21 documented as of this encounter
--- OUTSIDE RECORDS SUMMARY | 2023-08-17 08:56 | External Medical Summary ---
Author Name Unknown Address Unknown Organization [id number]:[facility] [place] [address] [place] [address] Laboratory Report Ordering Provider Test Date Status SOONEVAEHLEE 04/10/2023 08:47:09 Final Deficient: <20 ng/mL
Ins ufficient: 20-29 ng/mL
Recommended/Optimum:30-50 ng/mL

Vitamin D intoxication is rare. If suspicious of Vitamin D toxicity, evaluation of serum Calcium and PTH is recommended. Observation Date Value Abnormality Reference (Units ) Status 25-OH Vitamin D total 04/10/2023 08:47:09 39 >19 (ng/mL) Final Performing Location [facility] [place] [place] [address] [place] [address]
--- OUTSIDE RECORDS SUMMARY | 2023-08-17 08:56 | External Medical Summary ---
Author Name Unknown Address Unknown Organization [id number]:[facility] [place] [address] [place] [address] Laboratory Report Ordering Provider Test Date Status MARYSOL VANN 04/10/2023 08:47:09 Final Observation Date Value Abnormality Reference (Units ) Status BUN 04/10/2023 08:47:09 21 Above high normal 6-20 (mg/dL) Final Creatinine 04/10/2023 08:47:09 1.4 Above high normal 0.6-1.2 (mg/dL) Final Glomerular filtration rate/1.73 sq M.predicted [Volume Rate/Area] in Serum, Plasma or Blood by Creatinine-based formula (CKD-EPI) 04/10/2023 08:47:09 51 Below low normal >=60 (mL/min) Final eGFR is calculated based on the CKD-EPI 2020 equation SODIUM 04/10/2023 08:47:09 138 135-146 (m mol/L) Final Potassium 04/10/2023 08:47:09 4.1 3.5-5.1 (m mol/L) Final Cl 04/10/2023 08:47:09 100 98-107 (mm ol/L) Final CO2 04/10/2023 08:47:09 30 22-32 (mmo l/L) Final Anion gap 04/10/2023 08:47:09 8 7-15 (mmol /L) Final Glucose 04/10/2023 08:47:09 96 70-120 (mg /dL) Final Albumin 04/10/2023 08:47:09 4.3 3.8-5.0 (g /dL) Final AST (Aspartate aminotransferase) 04/10/2023 08:47:09 18 10-50 (U/L) Final Alk Phos 04/10/2023 08:47:09 82 35-130 (U/ L) Final Bilirubin, Total 04/10/2023 08:47:09 0.6 <=1 .2 (mg/dL) Final Calcium 04/10/2023 08:47:09 8.6 8.4-10.2 ( mg/dL) Final Protein 04/10/2023 08:47:09 6.1 6.0-8.3 (g /dL) Final ALT (Alanine aminotransferase) 04/10/2023 08:47:09 16 10-50 (U/L) Final Performing Location LABOR[facility]ORY [facility] - [address] [facility] [address]
--- OUTSIDE RECORDS SUMMARY | 2023-08-17 08:56 | External Medical Summary ---
Author Name Unknown Address Unknown Organization K01:LABORATORY [facility] - [address] [place] [address] Laboratory Report Ordering Provider Test Date Status MARYSOL VANN 04/10/2023 08:47:09 Final Observation Date Value Abnormality Reference (Units ) Status Vitamin B12 04/10/2023 08:47:09 368 803-2313 (pg/mL) Final Performing Location LABORATORY [facility] - [address] [place] [address]
--- OUTSIDE RECORDS SUMMARY | 2023-08-17 08:56 | External Medical Summary | Summary of Care ---
Author Name Unknown Organization [facility] Address [address] [facility] [place] [address] Phone [phone] Care Team Providers Care County Sheriff Name Role Phone Myla Reich PA-C Primary Care Provider [phone] Reason for Visit * Reason Onset Date Comments Advice 04/01/2023 Encounter Details Date Type Department Care Team (Late st Contact Info) Description 04/01/2023 Telephone [facility] [address] [place] [address] Myla Reich PA-C [address] [place] [address] Advice Allergies No known active allergiesdocumented as of this encounter (statuses as of 04/02/2023) Medications Medication Sig Dispensed Refills Start Date [...] 2 days 30 Tablet 0 04/02/2023 Active documented as of this encounter (statuses as of 04/02/2023) Active Problems Problem Noted Date Diagnosed Date Small vessel disease 03/28/2023 Stage 3b chronic kidney disease 01/18/2020 Overview: Per CKD protocol Neuropathy, idiopathic 01/03/2016 Sleep disturbance 10/27/2013 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 06/01/2011 History of tobacco use 08/04/2008 Alcohol Dependence, in Remission 09/06/2006 Dyslipidemia, goal LDL below 100 documented as of this encounter (statuses as of 04/02/2023) Resolved Problems Problem Noted Date Diagnosed Date [...] as of this encounter (statuses as of 04/02/2023) Immunizations Name Administration Dates Next Due Pneumococcal [...] encounter Miscellaneous Notes * Telephone Encounter - Giovanna Berger CCMA - 04/02/2023 3:31 PM EST Called pt went to . Left a massages that medication was send to the pharmacy. * Telephone Encounter - Myla Reich PA-C - 04/02/2023 3:05 PM EST Sent to sonal Reich PA-C 04/02/2023 3:05 PM * Telephone Encounter - Katt Saldaña OSA - 04/01/2023 9:43 AM EST Patient wants to ask pcp if he can get steroids for his hands since they are cramping up so badly he cannot do anything with them. Please further advise. documented in this encounter Plan of Treatment Upcoming Encounters Date Type Department Care Team (Late st Contact Info) Description 04/10/2023 8:20 AM EST Office Visit [facility] [address] [place] [address] Myla Reich PA-C [address] [place] [address] Scheduled Procedures Name Priority Associated Diagnoses Date/Ti me COLONOSCOPY FLEXIBLE PROXIMA L DIAGNOSTIC Recall Special screening for malignant neoplasms, colon Health Maintenance Due Date Last Done Comments COVID-19 Vaccine (#1) 03/29/1946 GFR 04/06/2023 10/04/2022, 03/11, 04/05/2021, Additional history exists Albumin/Creatinine Ratio 10/05/2023 023, 03/21/2021, 03/14/2020, Additional history exists CKD HGB USE SMARTSET 87286 10/05/202310/04, 04/05/2021, 04/05/2021, Additional history exists CKD PHOS USE SMARTSET 15344 10/05/202309/09, 03/21/2022, 04/05/2021, Additional history exists Depression [...] filedocumented as of this encounter Care Teams County Sheriff Relationship Specialty Start Date End Date Myla Reich PA-C [address] [facility] [address] PCP - General Physician Special Projects Coordinator 09/22/21 documented as of this encounter
--- OUTSIDE RECORDS SUMMARY | 2023-08-17 08:56 | External Medical Summary ---
Author Name Unknown Address Unknown Organization K01:[facility]ORY [facility] [place] - [address] [place] [address] Laboratory Report Ordering Provider Test Date Status MARYSOL VANN 04/10/2023 08:47:09 Final Observation Date Value Abnormality Reference (Units ) Status T4, Free 04/10/2023 08:47:09 0.8 Below low normal 0.9 -1.7 (ng/dL) Final Performing Location LABORATORY [facility] - [address] [place] [address]
[2023-08-17 08:57] LABS: INR 1.1 (0.9-1.1); Prothrombin Time 11.4 Seconds (9.0-12.0)
[2023-08-17 08:58] LABS: Ferritin 90.3 ng/ml (8-388)
[2023-08-17 09:04] LABS: Folate (Folic Acid),Ser orPlas > 22.30 ng/ml (>5.38)
[2023-08-17] MEDS: VANCOMYCIN HCL 1,500 MG in SODIUM CHLORIDE 0.9% 500 ML IV SCH (10:27)
--- NOTE | 2023-08-17 10:50 | Pharmacy Report ---
Pharmacy PK ABX Note - Date of Service August 17, 2023 - Assessment and Plan Assessment 08/16: * Random vanco level this am = 7.9 mcg/mL. Renal function improved slightly (Scr 1.57 -> 1.39 mg/dL). Estimated half life of ~16 hours. * Will start patient on q24h dosing and obtain early level. 08/15: * 77 year old M receiving cefepime and vancomycin for treatment of possible cellulitis * PMH: CKD III (no baseline SCr available in [facility]) * Pertinent microbiologic data includes: blood cultures and nasal swab pending Plan Vancomycin * Start 1500 mg (20 mg/kg) IV q24h * Goal AUC/CLINTON of 400-600 mg/L.hr * Current regimen predicted to achieve steady state AUC of 518 mcg/mL * Will monitor closely and repeat trough level if therapy continued (currently ordered x 48h) Pharmacy will continue to follow and will adjust dose/frequency as necessary. Thank you. Pharmacy has transitioned to AUC monitoring for vancomycin. AUC/CLINTON is the preferred PK/PD target and is associated with decreased risk of nephrotoxicity compared to traditional trough targets.
[2023-08-17] MEDS ORDERED: cefTRIAXone SODIUM 2,000 MG/50 ML BAG IV SCH (13:00)
--- NOTE | 2023-08-17 14:18 | Hospitalist Progress Note ---
Date of Service August 17, 2023 Assessment & Plan (1) Rigors: Plan: Presented with 2 episodes of rigors on and on Saturday Temperature went up to 39.3 at presentation Concerning area on chest c/w insect bite/sting Cultures have been taken and is started on intravenous antibiotic with vancomycin and cefepime MRSA has been negative Tickborne diseases have been ruled out Will await blood cultures and continue current antibiotic (2) Hypoglycemia: Plan: Ketones in urine, daughter reports poor po intake no hx of diabetes, insulin and c-peptide level ordered TSH has been within normal range Blood sugar was noted to be very low this morning He has been eating and drinking enough and the blood sugar has been maintained ct abdp A1C in am -normal at 5.6 Hypogylcemia protocol Awaiting insulin and C-peptide level (3) Cellulitis: Plan: Likely secondary to insect bite with a spreading cellulitis on the lower anterior chest wall Will continue current antibiotic for now Redness has been improving So for Lyme titer, Anaplasma and Babesia testing are negative Given the spreading cellulitis will cover for tickborne diseases specially Lyme and Anaplasma Antibiotic will be changed to IV ceftriaxone-continue vancomycin for now (4) Thrombocytopenia: Plan: Likely secondary to tick bite/insect bite r/o tick bourne disease Repeat CBC with diff in am, coags LFTs appear WNL (5) Dyskinesia: Plan: history of multiple neuroleptics, diffuse dyskinesia noted, at baseline per patient and daughter documented visit with neurology 2014 Neuro visit states " it very hard to state this man has any type of dementia. 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 Leon is a 77 year old gentleman with a history of HLD, neuropathy, CKDIII, prior psychiatric history on neurleptics c/b dyskinesia who is admitted for further evaluation of rigors and thrombocytopenia. Patient with questionable area of cellulitis, on left chest with central erythema and ~8in circumfrential spread of fading redness--c/w bite/sting. Patient with notable improvement with abx. #Insomnia continue trazodone #Chronic Iron deficiency anemia -last Ferritin 65 03/2023 hgb 13.7, consistent with today's lab continue iron supplementation #Stage 3b chronic kidney disease (Primary) Followed Dr. Suarez, "Very slowly progressive CKD 3B without microalbuminuria". stable on bmp DVT ppx heparin sq Med surg Admission and Anticipated Discharge Date Admission Date: August 16, 2023 Subjective 08/17/2023 The patient was seen and examined in medical floor He was admitted with shaking of the extremities like rigors that happened on and on Saturday without any documented fever History of bug bite front of lower chest about 2 weeks ago with overall/rounded rash on the lower part of the chest about 6 cm No nausea nor vomiting, no fever and no chills, cough or phlegm Review of Systems Review of Systems: All systems reviewed and are unremarkable except as noted below Physical Exam Physical Exam: Lying in bed without any significant symptoms Constitutional: well developed, well nourished and average body habitus; not ill appearing Eyes: PERRL, conjunctivae normal, anicteric sclerae ENMT: external ear and nose normal, oropharynx normal Neck: trachea midline, no thyromegaly Respiratory: + labored breathing; no respiratory dist ress Auscultation: lungs clear to auscultation bilaterally Cardiovascular: Rate/Rhythm: regular rate and regular rhythm; not tachycardic Heart Sounds: normal S1 and normal S2; no murmur Extremities: no edema Chest (Breasts): Additional Comments: Erythematous rounded/oval rash involving the lower anterior chest with a size about 6 cm-erythema has been improving Gastrointestinal (Abdomen): Inspection/Auscultation: normal bowel sounds; abdomen not distended Percussion/Palpation: abdomen soft; abdomen nontender Musculoskeletal: No acute arthritis involving any of the joint Neurologic: normal touch/pain/proprioception and moves all extremities; no focal motor deficits Has dyskinesia of unknown cause. Has been on multiple neuroleptics Lymphatic: no cervical or axillary lymphadenopathy Results & Data Results & Data Vital Signs (Past 12 Hours) Vital Signs Temp Pulse Resp BP Pulse Ox O2 Del Method 08/17/23 10:33 94 Room Air 08/17/23 08:00 36.6 C 62 18 111/55 L 96 Nasal Cannula Laboratory Results Short CBC 08/17/23 Range/Units 08:00 WBC 4.03 L (4.8-10.8) K/ul Hgb 11.9 L (14.0-18.0) g/dl Hct 34.4 L (42.0-52.0) % Plt Count 75 L (130-400) K/uL BMP 08/17/23 08:00 Sodium 139 Potassium 3.7 Chloride 108 H Carbon Dioxide 26 BUN 20 Creatinine 1.39 Glucose 102 H Calcium 8.1 L Cardiac Enzymes 08/16/23 Range/Units 12:53 Total Creatine Kinase 93 (30-223) U/L Liver Function 08/17/23 Range/Units 08:00 Total Bilirubin 0.7 (0.2-1.0) mg/dl AST 21 (13-39) U/L ALT 8 (7-52) U/L Alkaline Phosphatase 64 (34-104) U/L Albumin 3.3 L (3.4-5.0) gm/dl Urine 08/16/23 Range/Units 13:45 Urine Color Yellow Urine Appearance Clear (Clear) Urine pH 7.0 (4.5-7.5) Ur Specific [place] 1.018 (1.000-1.030) Urine Protein Trace H (Negative) Urine Glucose (UA) Negative (Negative) Medications Administered Current Inpatient Medications Acetaminophen (Acetaminophen 325 Mg Tab) 650 mg PO Q4H PRN PRN Reason: Pain or Fever Stop: 09/15/23 16:50 Last Admin: 08/16/23 20:03 Dose: 650 mg Ascorbic Acid (Ascorbic Acid 500 Mg Tab) 1,000 mg PO DAILY SRINATH Stop: 09/16/23 08:59 Last Admin: 08/17/23 08:12 Dose: 1,000 mg Aspirin (Aspirin 81 Mg Ectab) 81 mg PO DAILY SRINATH Stop: 09/16/23 08:59 Last Admin: 08/17/23 08:13 Dose: 81 mg Dextrose (Dextrose 50% 50 Ml Syringe) 25 - 50 ml IV UD PRN; Protocol PRN Reason: Hypoglycemia Protocol Stop: 09/15/23 17:29 Ferrous Sulfate (Ferrous Sulfate 325 Mg Tab) 650 mg PO DAILY SRINATH Stop: 09/16/23 08:59 Last Admin: 08/17/23 08:12 Dose: 650 mg Gabapentin (Gabapentin 300 Mg Cap) 600 mg PO BID SRINATH Stop: 09/15/23 20:59 Last Admin: 08/17/23 08:12 Dose: 600 mg Glucagon (Glucagon For Inj 1 Mg Vial) 1 mg SQ UD PRN; Protocol PRN Reason: Hypoglycemia Protocol Stop: 09/15/23 17:29 Glucose (Glucose 40% Gel 15 Gm Tube) 15 - 30 gm PO UD PRN; Protocol PRN Reason: Hypoglycemia Protocol Stop: 09/15/23 17:29 Glucose (Glucose 10 Tab/Tube) 4 - 8 tab PO UD PRN; Protocol PRN Reason: Hypoglycemia Treatment Stop: 09/15/23 17:29 Heparin Sodium (Porcine) (Heparin Sod 5,000 Unit/0.5 Ml Vial) 5,000 units SQ Q8 SRINATH Stop: 09/15/23 21:59 Last Admin: 08/17/23 13:50 Dose: 5,000 units Cefepime HCl 2,000 mg/ Syringe 20 mls @ 5 mls/min IV Q12H SRINATH; Protocol Stop: 08/18/23 17:14 Last Admin: 08/17/23 04:36 Dose: 5 mls/min Acetaminophen (Ofirmev) 1,000 mg in 100 mls @ 400 mls/hr IV Q8H PRN PRN Reason: Pain or Fever Stop: 08/19/23 20:19 Vancomycin HCl 1,500 mg/ (Sodium Chloride) 530 mls @ 200 mls/hr IV Q24H [facility] Stop: 08/18/23 18:00 Last Infusion: 08/17/23 13:50 Dose: Infused Miscellaneous (Carbohydrates For Hypoglycemia ) 15 - 30 gm PO UD PRN PRN Reason: Hypoglycemia Protocol Stop: 09/15/23 17:29 Last Admin: 08/16/23 17:11 Dose: 30 gm Miscellaneous Information (Vancomycin Consult Active) 1 each N/A UD PRN PRN Reason: Consult Stop: 09/15/23 17:13 Multivitamins (Multivitamin Tab) 1 tab PO DAILY SRINATH Stop: 09/16/23 08:59 Last Admin: 08/17/23 08:13 Dose: 1 tab Trazodone HCl (Trazodone Hcl 100 Mg Tab) 100 mg PO HS SRINATH Stop: 09/15/23 20:59 Last Admin: 08/16/23 20:04 Dose: 100 mg (3) Cellulitis Site of cellulitis: unspecified site Qualified Code(s): L03.90 - Cellulitis, unspecified
[2023-08-17] MEDS: cefTRIAXone SODIUM 2,000 MG/50 ML BAG IV SCH (15:37)
[2023-08-17] MEDS: AZITHROMYCIN 500 MG in DEXTROSE 5% 250 ML IV STA (16:48)
[2023-08-17] MEDS: MELATONIN 3 MG TAB PO PRN (21:33)
[2023-08-18 08:44] LABS: Creatinine Clr Calc Pharmacy 50.2 ml/min; Est GFR (Non-African American) 52.6 ml/min
[2023-08-18 11:43] LABS: Basophils # (auto) 0.02 K/uL (0.00-0.20); Basophils % (auto) 0.5 %; Eosinophils # (auto) 0.01 K/uL (0.00-0.50); Eosinophils % (auto) 0.3 %; Hematocrit (blood only) 34.7 % (42.0-52.0); Hemoglobin 12.1 g/dl (14.0-18.0); Immature Granulocytes # (auto) 0.01 K/uL (0.01-0.20); Immature Granulocytes % (auto) 0.3 %; Lymphocytes # (auto) 0.96 K/uL (1.20-3.40); Lymphocytes % (auto) 24.1 %; Mean Corpuscular Hemoglobin 32.2 pg (25.0-34.0); Mean Corpuscular Hgb Conc 34.9 g/dL (32.0-36.0); Mean Corpuscular Volume 92.3 fL (80.0-100.0); Mean Platelet Volume 10.5 fL (9.4-12.4); Neutrophils # (auto) 2.39 K/uL (1.40-6.50); Neutrophils % (auto) 59.8 %; Platelet Count 84 K/uL (130-400); Red Blood Count 3.76 M/uL (4.70-6.10); White Blood Count 3.99 K/ul (4.8-10.8)
[2023-08-18 11:59] LABS: Albumin Globulin Ratio 1.3 (0.9-2); Albumin Level 3.3 gm/dl (3.4-5.0); BUN Creatinine Ratio 14.4 (10-20); Bilirubin,Total 0.5 mg/dl (0.2-1.0); Calcium 8.3 mg/dl (8.6-10.3); Creatinine Clr Calc Pharmacy 44.7 ml/min; Est GFR (Non-African American) 45.7 ml/min; Globulin 2.6 gm/dl (2.5-4.0); Phosphorus 2.5 mg/dl (2.5-4.9); Potassium 3.5 mmol/L (3.5-5.1); Total Protein 5.9 gm/dl (6.0-8.3)
[2023-08-18] MEDS: AZITHROMYCIN 250 MG in DEXTROSE 5% 250 ML IV SCH (13:26)
--- NOTE | 2023-08-18 14:11 | Hospitalist Progress Note ---
Date of Service August 18, 2023 Assessment & Plan (1) Rigors: Plan: Presented with 2 episodes of rigors on and on Saturday Temperature went up to 39.3 at presentation Concerning area on chest c/w insect bite/sting Cultures have been taken and is started on intravenous antibiotic with vancomycin and cefepime MRSA has been negative Tickborne diseases have been ruled out Will await blood cultures and continue current antibiotic Vancomycin has been discontinued Blood cultures have been negative Clinically better (2) Hypoglycemia: Plan: Ketones in urine, daughter reports poor po intake no hx of diabetes, insulin and c-peptide level ordered TSH has been within normal range Blood sugar was noted to be very low this morning He has been eating and drinking enough and the blood sugar has been maintained ct abdp A1C in am -normal at 5.6 Hypogylcemia protocol Awaiting insulin and C-peptide level (3) Cellulitis: Plan: Likely secondary to insect bite with a spreading cellulitis on the lower anterior chest wall Will continue current antibiotic for now Redness has been improving So for Lyme titer, Anaplasma and Babesia testing are negative Given the spreading cellulitis will cover for tickborne diseases specially Lyme and Anaplasma Antibiotic will be changed to IV ceftriaxone-continue vancomycin for now Will continue ceftriaxone and azithromycin (4) Thrombocytopenia: Plan: Likely secondary to tick bite/insect bite r/o tick bourne disease Repeat CBC with diff in am, coags LFTs appear WNL (5) Dyskinesia: Plan: history of multiple neuroleptics, diffuse dyskinesia noted, at baseline per patient and daughter documented visit with neurology 2014 Neuro visit states " it very hard to state this man has any type of dementia. 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 Leon is a 77 year old gentleman with a history of HLD, neuropathy, CKDIII, prior psychiatric history on neurleptics c/b dyskinesia who is admitted for further evaluation of rigors and thrombocytopenia. Patient with questionable area of cellulitis, on left chest with central erythema and ~8in circumfrential spread of fading redness--c/w bite/sting. Patient with notable improvement with abx. #Insomnia continue trazodone #Chronic Iron deficiency anemia -last Ferritin 65 03/2023 hgb 13.7, consistent with today's lab continue iron supplementation #Stage 3b chronic kidney disease (Primary) Followed Dr. Suarez, "Very slowly progressive CKD 3B without microalbuminuria". stable on bmp DVT ppx heparin sq Med surg Admission and Anticipated Discharge Date Admission Date: August 16, 2023 Subjective 08/17/2023 The patient was seen and examined in medical floor He was admitted with shaking of the extremities like rigors that happened on and on Saturday without any documented fever History of bug bite front of lower chest about 2 weeks ago with overall/rounded rash on the lower part of the chest about 6 cm No nausea nor vomiting, no fever and no chills, cough or phlegm 08/18/2023 The patient was seen and examined in medical floor He has been feeling little better Complains today of some nonspecific pain involving the hands and feet Rash is almost gone with significant narrowing of the suspected bull's-eye lesion Review of Systems Review of Systems: All systems reviewed and are unremarkable except as noted below Physical Exam Physical Exam: Lying in bed without any significant symptoms Constitutional: well developed, well nourished and average body habitus; not ill appearing Eyes: PERRL, conjunctivae normal, anicteric sclerae ENMT: external ear and nose normal, oropharynx normal Neck: trachea midline, no thyromegaly Respiratory: + labored breathing; no respiratory dist ress Auscultation: lungs clear to auscultation bilaterally Cardiovascular: Rate/Rhythm: regular rate and regular rhythm; not tachycardic Heart Sounds: normal S1 and normal S2; no murmur Extremities: no edema Gastrointestinal (Abdomen): Inspection/Auscultation: normal bowel sounds; abdomen not distended Percussion/Palpation: abdomen soft; abdomen nontender Musculoskeletal: No acute arthritis involving any of the joint Neurologic: normal touch/pain/proprioception and moves all extremities; no focal motor deficits Lymphatic: no cervical or axillary lymphadenopathy Results & Data Results & Data Vital Signs (Past 12 Hours) Vital Signs Temp Pulse Resp BP Pulse Ox O2 Del Method 08/18/23 07:38 36.7 C 58 L 20 132/64 95 Room Air Laboratory Results Short CBC 08/18/23 Range/Units 11:15 WBC 3.99 L (4.8-10.8) K/ul Hgb 12.1 L (14.0-18.0) g/dl Hct 34.7 L (42.0-52.0) % Plt Count 84 L (130-400) K/uL BMP 08/18/23 08/18/23 08:04 11:15 Sodium 137 Potassium 3.5 Chloride 105 Carbon Dioxide 29 BUN 21 Creatinine 1.30 1.46 H Glucose 105 H Calcium 8.3 L Liver Function 08/18/23 Range/Units 11:15 Total Bilirubin 0.5 (0.2-1.0) mg/dl AST 30 (13-39) U/L ALT 11 (7-52) U/L Alkaline Phosphatase 70 (34-104) U/L Albumin 3.3 L (3.4-5.0) gm/dl Medications Administered Current Inpatient Medications Acetaminophen (Acetaminophen 325 Mg Tab) 650 mg PO Q4H PRN PRN Reason: Pain or Fever Stop: 09/15/23 16:50 Last Admin: 08/16/23 20:03 Dose: 650 mg Ascorbic Acid (Ascorbic Acid 500 Mg Tab) 1,000 mg PO DAILY SRINATH Stop: 09/16/23 08:59 Last Admin: 08/18/23 08:13 Dose: 1,000 mg Aspirin (Aspirin 81 Mg Ectab) 81 mg PO DAILY SRINATH Stop: 09/16/23 08:59 Last Admin: 08/18/23 08:13 Dose: 81 mg Dextrose (Dextrose 50% 50 Ml Syringe) 25 - 50 ml IV UD PRN; Protocol PRN Reason: Hypoglycemia Protocol Stop: 09/15/23 17:29 Ferrous Sulfate (Ferrous Sulfate 325 Mg Tab) 650 mg PO DAILY SRINATH Stop: 09/16/23 08:59 Last Admin: 08/18/23 08:13 Dose: 650 mg Gabapentin (Gabapentin 300 Mg Cap) 600 mg PO BID SRINATH Stop: 09/15/23 20:59 Last Admin: 08/18/23 08:12 Dose: 600 mg Glucagon (Glucagon For Inj 1 Mg Vial) 1 mg SQ UD PRN; Protocol PRN Reason: Hypoglycemia Protocol Stop: 09/15/23 17:29 Glucose (Glucose 40% Gel 15 Gm Tube) 15 - 30 gm PO UD PRN; Protocol PRN Reason: Hypoglycemia Protocol Stop: 09/15/23 17:29 Glucose (Glucose 10 Tab/Tube) 4 - 8 tab PO UD PRN; Protocol PRN Reason: Hypoglycemia Treatment Stop: 09/15/23 17:29 Heparin Sodium (Porcine) (Heparin Sod 5,000 Unit/0.5 Ml Vial) 5,000 units SQ Q8 SRINATH Stop: 09/15/23 21:59 Last Admin: 08/18/23 13:01 Dose: 5,000 units Acetaminophen (Ofirmev) 1,000 mg in 100 mls @ 400 mls/hr IV Q8H PRN PRN Reason: Pain or Fever Stop: 08/19/23 20:19 Vancomycin HCl 1,500 mg/ (Sodium Chloride) 530 mls @ 200 mls/hr IV Q24H [facility] Stop: 08/18/23 18:00 Last Infusion: 08/18/23 13:19 Dose: Infused Ceftriaxone Sodium (Rocephin) 2,000 mg in 50 mls @ 100 mls/hr IV Q24H [facility] Stop: 08/19/23 14:59 Last Infusion: 08/17/23 16:31 Dose: Infused Azithromycin 250 mg/ Dextrose 252.5 mls @ 125 mls/hr IV Q24H [facility] Stop: 08/20/23 13:59 Last Admin: 08/18/23 13:26 Dose: 125 mls/hr Melatonin (Melatonin 3 Mg Tab) 3 mg PO HS PRN PRN Reason: Sleep Stop: 09/16/23 21:11 Last Admin: 08/17/23 21:33 Dose: 3 mg Miscellaneous (Carbohydrates For Hypoglycemia ) 15 - 30 gm PO UD PRN PRN Reason: Hypoglycemia Protocol Stop: 09/15/23 17:29 Last Admin: 08/16/23 17:11 Dose: 30 gm Miscellaneous Information (Vancomycin Consult Active) 1 each N/A UD PRN PRN Reason: Consult Stop: 09/15/23 17:13 Multivitamins (Multivitamin Tab) 1 tab PO DAILY SRINATH Stop: 09/16/23 08:59 Last Admin: 08/18/23 08:12 Dose: 1 tab Trazodone HCl (Trazodone Hcl 100 Mg Tab) 100 mg PO HS SRINATH Stop: 09/15/23 20:59 Last Admin: 08/17/23 21:34 Dose: 100 mg (3) Cellulitis Site of cellulitis: unspecified site Qualified Code(s): L03.90 - Cellulitis, unspecified
[2023-08-18 14:56] VITALS: RESP 16
[2023-08-19 07:17] LABS: Basophils # (auto) 0.02 K/uL (0.00-0.20); Basophils % (auto) 0.6 %; Eosinophils # (auto) 0.05 K/uL (0.00-0.50); Eosinophils % (auto) 1.4 %; Hematocrit (blood only) 36.3 % (42.0-52.0); Hemoglobin 12.4 g/dl (14.0-18.0); Immature Granulocytes # (auto) 0.01 K/uL (0.01-0.20); Immature Granulocytes % (auto) 0.3 %; Lymphocytes # (auto) 1.14 K/uL (1.20-3.40); Lymphocytes % (auto) 32.7 %; Mean Corpuscular Hemoglobin 31.3 pg (25.0-34.0); Mean Corpuscular Hgb Conc 34.2 g/dL (32.0-36.0); Mean Corpuscular Volume 91.7 fL (80.0-100.0); Mean Platelet Volume 10.6 fL (9.4-12.4); Monocytes # (auto) 0.38 K/uL (0.11-0.59); Monocytes % (auto) 10.9 %; Neutrophils # (auto) 1.89 K/uL (1.40-6.50); Neutrophils % (auto) 54.1 %; Platelet Count 104 K/uL (130-400); RDW Standard Deviation 40.6 fL (36.4-46.3); Red Blood Count 3.96 M/uL (4.70-6.10); White Blood Count 3.49 K/ul (4.8-10.8)
[2023-08-19 07:32] LABS: BUN Creatinine Ratio 14.5 (10-20); Calcium 8.4 mg/dl (8.6-10.3); Creatinine Clr Calc Pharmacy 52.6 ml/min; Est GFR (African American) 64.6 ml/min; Est GFR (Non-African American) 55.7 ml/min; Magnesium 2.2 mg/dl (1.7-2.4); Phosphorus 2.9 mg/dl (2.5-4.9)
[2023-08-19 08:05] VITALS: BP 130/64; TEMP 98.4; O2SAT 94
--- NOTE | 2023-08-19 10:51 | Hospitalist Progress Note ---
Date of Service August 19, 2023 Assessment & Plan (1) Rigors: Plan: Presented with 2 episodes of rigors on and on Saturday Temperature went up to 39.3 at presentation Concerning area on chest c/w insect bite/sting Cultures have been taken and is started on intravenous antibiotic with vancomycin and cefepime MRSA has been negative Tickborne diseases have been ruled out Will await blood cultures and continue current antibiotic Vancomycin has been discontinued Blood cultures have been negative No more rigors, fever or chills and white count remains normal-minimally leukopenic Peripheral blood smear has been negative Will discontinue IV ceftriaxone and azithromycin Will give doxycycline for another 7 days to cover possible insect bite with local cellulitis (2) Hypoglycemia: Plan: Ketones in urine, daughter reports poor po intake no hx of diabetes, insulin and c-peptide level ordered TSH has been within normal range Blood sugar was noted to be very low this morning He has been eating and drinking enough and the blood sugar has been maintained ct abdp A1C in am -normal at 5.6 Hypogylcemia protocol Insulin level and C-peptide are within normal range No more hypoglycemia noted (3) Cellulitis: Plan: Likely secondary to insect bite with a spreading cellulitis on the lower anterior chest wall Will continue current antibiotic for now Redness has been improving So for Lyme titer, Anaplasma and Babesia testing are negative Given the spreading cellulitis will cover for tickborne diseases specially Lyme and Anaplasma Antibiotic will be changed to IV ceftriaxone-continue vancomycin for now Will continue ceftriaxone and azithromycin (4) Thrombocytopenia: Plan: Likely secondary to tick bite/insect bite r/o tick bourne disease Repeat CBC with diff in am, coags LFTs appear WNL Thrombocytopenia has improved to more than 100 (5) Dyskinesia: Plan: history of multiple neuroleptics, diffuse dyskinesia noted, at baseline per patient and daughter documented visit with neurology 2014 Neuro visit states " it very hard to state this man has any type of dementia. 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 Leon is a 77 year old gentleman with a history of HLD, neuropathy, CKDIII, prior psychiatric history on neurleptics c/b dyskinesia who is admitted for further evaluation of rigors and thrombocytopenia. Patient with questionable area of cellulitis, on left chest with central erythema and ~8in circumfrential spread of fading redness--c/w bite/sting. Patient with notable improvement with abx. #Insomnia continue trazodone #Chronic Iron deficiency anemia -last Ferritin 65 03/2023 hgb 13.7, consistent with today's lab continue iron supplementation #Stage 3b chronic kidney disease (Primary) Followed Dr. Suarez, "Very slowly progressive CKD 3B without microalbuminuria". stable on bmp DVT ppx heparin sq Med surg Will be discharged home this afternoon Admission and Anticipated Discharge Date Admission Date: August 16, 2023 Subjective 08/17/2023 The patient was seen and examined in medical floor He was admitted with shaking of the extremities like rigors that happened on and on Saturday without any documented fever History of bug bite front of lower chest about 2 weeks ago with overall/rounded rash on the lower part of the chest about 6 cm No nausea nor vomiting, no fever and no chills, cough or phlegm 08/18/2023 The patient was seen and examined in medical floor He has been feeling little better Complains today of some nonspecific pain involving the hands and feet Rash is almost gone with significant narrowing of the suspected bull's-eye lesion 08/19/2023 The patient was seen and examined in medical floor He has been feeling much better No fever and no chills No more worsening of dyskinetic movement of the extremities His platelet has been improving The insect bite area has improved a lot on anterior chest Review of Systems Review of Systems: All systems reviewed and are unremarkable except as noted below Physical Exam Physical Exam: Lying in bed without any significant symptoms Constitutional: well developed, well nourished and average body habitus; not ill appearing Eyes: PERRL, conjunctivae normal, anicteric sclerae ENMT: external ear and nose normal, oropharynx normal Neck: trachea midline, no thyromegaly Respiratory: + labored breathing; no respiratory dist ress Auscultation: lungs clear to auscultation bilaterally Cardiovascular: Rate/Rhythm: regular rate and regular rhythm; not tachycardic Heart Sounds: normal S1 and normal S2; no murmur Extremities: no edema Gastrointestinal (Abdomen): Inspection/Auscultation: normal bowel sounds; abdomen not distended Percussion/Palpation: abdomen soft; abdomen nontender Neurologic: normal touch/pain/proprioception and moves all extremities; no focal motor deficits Lymphatic: no cervical or axillary lymphadenopathy Results & Data Results & Data Vital Signs (Past 12 Hours) Vital Signs Temp Pulse Pulse Resp BP BP Pulse Ox 08/19/23 08:01 36.9 C 51 L 16 130/64 94 08/19/23 07:06 36.6 C 52 L 16 134/65 96 O2 Del Method 08/19/23 08:01 Room Air 08/19/23 07:06 Room Air Laboratory Results Short CBC 08/18/23 08/19/23 Range/Units 11:15 06:34 WBC 3.99 L 3.49 L (4.8-10.8) K/ul Hgb 12.1 L 12.4 L (14.0-18.0) g/dl Hct 34.7 L 36.3 L (42.0-52.0) % Plt Count 84 L 104 L (130-400) K/uL BMP 08/18/23 08/19/23 11:15 06:34 Sodium 137 141 Potassium 3.5 4.0 Chloride 105 106 Carbon Dioxide 29 29 BUN 21 18 Creatinine 1.46 H 1.24 Glucose 105 H 103 H Calcium 8.3 L 8.4 L Liver Function 08/18/23 Range/Units 11:15 Total Bilirubin 0.5 (0.2-1.0) mg/dl AST 30 (13-39) U/L ALT 11 (7-52) U/L Alkaline Phosphatase 70 (34-104) U/L Albumin 3.3 L (3.4-5.0) gm/dl Medications Administered Current Inpatient Medications Acetaminophen (Acetaminophen 325 Mg Tab) 650 mg PO Q4H PRN PRN Reason: Pain or Fever Stop: 09/15/23 16:50 Last Admin: 08/16/23 20:03 Dose: 650 mg Ascorbic Acid (Ascorbic Acid 500 Mg Tab) 1,000 mg PO DAILY SRINATH Stop: 09/16/23 08:59 Last Admin: 08/19/23 08:45 Dose: 1,000 mg Aspirin (Aspirin 81 Mg Ectab) 81 mg PO DAILY SRINATH Stop: 09/16/23 08:59 Last Admin: 08/19/23 08:45 Dose: 81 mg Dextrose (Dextrose 50% 50 Ml Syringe) 25 - 50 ml IV UD PRN; Protocol PRN Reason: Hypoglycemia Protocol Stop: 09/15/23 17:29 Doxycycline Hyclate (Doxycycline Hyclate 100 Mg Cap) 100 mg PO Q12H SRINATH Stop: 08/26/23 10:59 Ferrous Sulfate (Ferrous Sulfate 325 Mg Tab) 650 mg PO DAILY SRINATH Stop: 09/16/23 08:59 Last Admin: 08/19/23 08:45 Dose: 650 mg Gabapentin (Gabapentin 300 Mg Cap) 600 mg PO BID SRINATH Stop: 09/15/23 20:59 Last Admin: 08/19/23 08:45 Dose: 600 mg Glucagon (Glucagon For Inj 1 Mg Vial) 1 mg SQ UD PRN; Protocol PRN Reason: Hypoglycemia Protocol Stop: 09/15/23 17:29 Glucose (Glucose 40% Gel 15 Gm Tube) 15 - 30 gm PO UD PRN; Protocol PRN Reason: Hypoglycemia Protocol Stop: 09/15/23 17:29 Glucose (Glucose 10 Tab/Tube) 4 - 8 tab PO UD PRN; Protocol PRN Reason: Hypoglycemia Treatment Stop: 09/15/23 17:29 Heparin Sodium (Porcine) (Heparin Sod 5,000 Unit/0.5 Ml Vial) 5,000 units SQ Q8 SRINATH Stop: 09/15/23 21:59 Last Admin: 08/19/23 05:33 Dose: 5,000 units Acetaminophen (Ofirmev) 1,000 mg in 100 mls @ 400 mls/hr IV Q8H PRN PRN Reason: Pain or Fever Stop: 08/19/23 20:19 Melatonin (Melatonin 3 Mg Tab) 3 mg PO HS PRN PRN Reason: Sleep Stop: 09/16/23 21:11 Last Admin: 08/18/23 21:24 Dose: 3 mg Miscellaneous (Carbohydrates For Hypoglycemia ) 15 - 30 gm PO UD PRN PRN Reason: Hypoglycemia Protocol Stop: 09/15/23 17:29 Last Admin: 08/16/23 17:11 Dose: 30 gm Multivitamins (Multivitamin Tab) 1 tab PO DAILY SRINATH Stop: 09/16/23 08:59 Last Admin: 08/19/23 08:45 Dose: 1 tab Trazodone HCl (Trazodone Hcl 100 Mg Tab) 100 mg PO HS [facility] Stop: 09/15/23 20:59 Last Admin: 08/18/23 21:23 Dose: 100 mg (3) Cellulitis Site of cellulitis: unspecified site Qualified Code(s): L03.90 - Cellulitis, unspecified
[2023-08-19] MEDS: DOXYCYCLINE HYCLATE 100 MG CAP PO SCH (12:36)
[2023-08-19 14:05] VITALS: PULSE 52
--- NOTE | 2023-08-19 16:05 | Discharge Summary ---
Date of Service August 19, 2023 Admission HPI Per Admitting Provider Mr. Leon is a 77 year old woman/gentleman with past medical history remarkable for presented to [facility] due to rigors and chills. Patient states a couple weeks ago he noted a small "spot" on his chest that was mildly itchy, but didn't pay much attention to the area, it seems the surrounding redness progressed. He notes that now over the last 48 hours he has experienced severe chills making it harder for him to function. He already experiences "unaddressed movements" for years, consistent with diagnosis of dyskinesia in 2013 after previous neuroleptic use. He denies subjective fevers, cough, urinary concerns, bowel function changes, nausea, vomiting. He reports feeling subjectively improved since abx. Denies any animal exposure, camping/hiking/lawn work, [place]" Blood cultures obtained. UA protein, rbc + no blood, ketones. BMP with Cr. 1,5 c/w CKD. CK 93, platelets 91 In the ED, vitals were notable for BP of 120s-150s, HR of 60-80s, and O2 sat of mid 90s on room air, TMAX 38 Imaging revealed clear CXR, w/o consolidations or infectious process EKG with artifact, but no signs of block ED interventions: ctx/doxy Patient to be admitted to med/surg for further evaluation and management of fever and rigors, concern for cellulitis, ?tickborne illness Admission Exam Per Admitting Provider Physical Exam: GENERAL APPEARANCE: AxOx4, no distress, diffuse writhing movements, predominately face/upper extremities with HEENT: NC, AT. MMM. EOMI, clear conjunctiva, oropharynx clear. NECK: Supple without lymphadenopathy. No stiffness or restricted ROM. HEART: Normal rate and regular rhythm, normal S1/S1, no m/r/g LUNGS: CTAB, moving air well. No crackles or wheezes are heard. ABDOMEN: Soft, nontender, nondistended with good bowel sounds heard. BACK: No CVAT, no obvious deformity. EXTREMITIES: Without cyanosis, clubbing or edema. NEUROLOGICAL: Grossly nonfocal. Alert and oriented, moving all 4 extremities. CN not formally tested but appear grossly intact. Skin: large area of erythema along left anterior chest will with central punctate area--no purulence noted, no discharge Principal Diagnosis Insect bite, cellulitis of chest wall, dyskinetic movement Discharge Exam Lying in bed without any significant symptoms Constitutional well developed, well nourished and average body habitus; not ill appearing Eyes PERRL, conjunctivae normal, anicteric sclerae ENMT external ear and nose normal, oropharynx normal Neck trachea midline, no thyromegaly Respiratory + labored breathing; no respiratory distress Auscultation: lungs clear to auscultation bilaterally Cardiovascular Rate/Rhythm: regular rate and regular rhythm; not tachycardic Heart Sounds: normal S1 and normal S2; no murmur Extremities: no edema Gastrointestinal (Abdomen) Inspection/Auscultation: normal bowel sounds; abdomen not distended Percussion/Palpation: abdomen soft; abdomen nontender Neurologic normal touch/pain/proprioception and moves all extremities; no focal motor deficits Lymphatic no cervical or axillary lymphadenopathy Discharge Data Allergies Allergy/AdvReac Type Severity Reaction Status Date / Time ziprasidone AdvReac Intermediate RASH Verified 08/20/20 15:02 Consultations 08/16/23 14:13 ED Decision to Admit Stat Ordered Studies 08/16/23 17:26 CT abd pelvis wo con Routine Hospital Course (1) Rigors: Presented with 2 episodes of rigors on and on Saturday Temperature went up to 39.3 at presentation Concerning area on chest c/w insect bite/sting Cultures have been taken and is started on intravenous antibiotic with vancomycin and cefepime MRSA has been negative Tickborne diseases have been ruled out Will await blood cultures and continue current antibiotic Vancomycin has been discontinued Blood cultures have been negative No more rigors, fever or chills and white count remains normal-minimally leukopenic Peripheral blood smear has been negative Will discontinue IV ceftriaxone and azithromycin Will give doxycycline for another 7 days to cover possible insect bite with local cellulitis (2) Hypoglycemia: Ketones in urine, daughter reports poor po intake no hx of diabetes, insulin and c-peptide level ordered TSH has been within normal range Blood sugar was noted to be very low this morning He has been eating and drinking enough and the blood sugar has been maintained ct abdp A1C in am -normal at 5.6 Hypogylcemia protocol Insulin level and C-peptide are within normal range No more hypoglycemia noted (3) Cellulitis: Likely secondary to insect bite with a spreading cellulitis on the lower anterior chest wall Will continue current antibiotic for now Redness has been improving So for Lyme titer, Anaplasma and Babesia testing are negative Given the spreading cellulitis will cover for tickborne diseases specially Lyme and Anaplasma Antibiotic will be changed to IV ceftriaxone-continue vancomycin for now Will continue ceftriaxone and azithromycin (4) Thrombocytopenia: Likely secondary to tick bite/insect bite r/o tick bourne disease Repeat CBC with diff in am, coags LFTs appear WNL Thrombocytopenia has improved to more than 100 (5) Dyskinesia: history of multiple neuroleptics, diffuse dyskinesia noted, at baseline per patient and daughter documented visit with neurology 2014 Neuro visit states " it very hard to state this man has any type of dementia. 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 Leon is a 77 year old gentleman with a history of HLD, neuropathy, CKDIII, prior psychiatric history on neurleptics c/b dyskinesia who is admitted for further evaluation of rigors and thrombocytopenia. Patient with questionable area of cellulitis, on left chest with central erythema and ~8in circumfrential spread of fading redness--c/w bite/sting. Patient with notable improvement with abx. #Insomnia continue trazodone #Chronic Iron deficiency anemia -last Ferritin 65 03/2023 hgb 13.7, consistent with today's lab continue iron supplementation #Stage 3b chronic kidney disease (Primary) Followed Dr. Suarez, "Very slowly progressive CKD 3B without microalbuminuria". stable on bmp DVT ppx heparin sq Med surg Will be discharged home this afternoon Total Time Total Time Spent Total Time Spent (In Minutes): 35 minutes Discharge Plan Discharge Items Patient Disposition: Home - Self-Care Reason For Visit: FEVER,RIGORS Discharge Diagnosis: Insect bite, cellulitis of chest wall, dyskinetic movement Condition on Discharge: Good Activity: Resume your previous activity Non-emergency contact: Primary Care Provider Call non-emergency contact if: you have any medication questions and your symptoms worsen Follow-up/Referrals: Myla Reich PA-C [Primary Care Provider] - (Date & Time 08/22/2023 11:20 AM Provider Myla Reich PA-C Department [facility] ) Diet: Regular Addtl Attending Provider Instructions: Please take precautions to avoid falls Finish the course of antibiotic Take precaution while you are in the pichardo-precautions to avoid insect bite Please keep appointment with the healthcare providers Pending Studies at Discharge: Yes Studies:: Viral serological test Stand-Alone Forms: My [facility], Smoking Cessation Medications and DC Order Prescriptions: New doxycycline hyclate 100 mg Capsule 100 mg PO Q12H Qty: 14 0RF Continued ascorbic acid (vitamin C) 500 mg capsule 1,000 mg PO DAILY aspirin 81 mg tablet,delayed release (DR/EC) 81 mg PO DAILY ferrous sulfate 325 mg (65 mg iron) tablet 650 mg PO DAILY multivitamin Tablet 1 tab PO DAILY trazodone 50 mg tablet 100 mg PO HS gabapentin 300 mg capsule 600 mg PO BID Rx Instructions: 2 am and 2 pm CoQ-10 1 cap PO UD Rx Instructions: otc, as directed Discharge Orders: Discharge Order (Routine); Ordered 08/19/23 Ordered By: Roxy Peralta Admission Data Admit Date/Time: 08/16/23 14:58 Attending Provider: Roxy Peralta Admit Provider: Kellie Sargent Primary Care Provider: Myla Reich Other Providers: Kellie Sargent Other Interventions: Discharge Summary Assessment (RN) Last Done: 08/19/23 14:04
[2023-08-21 14:10] LABS: Ehrlichia chaff DNA Bld Negative (Negative)
== END 2023-08-19 15:25 | disposition home or self-care (01) | DRG 603 ==
LOC: ED 12:16 → 3W 14:58 → SUATTDRO 14:58 → 3W 16:46